=== PATIENT | male | born 1950 | race Caucasian/White ===

== ENCOUNTER 2016-10-03 23:36 | Emergency (ER) | payer MEDICARE, OTHER ==
[2016-10-04 00:05] VITALS: TEMP 97.9
--- NOTE | 2016-10-04 00:05 | ED.PDOC ---
History of Present Illness - General Chief Complaint: Neuro Symptoms/Deficits Stated Complaint: fall x3, altered mental status Time Seen by Provider: 10/03/16 23:53 Source: patient, RN notes reviewed, Vital Signs reviewed, family - Daughter Exam Limitations: no limitations, clinical condition - History of Present Illness Initial Comments: Patient is a 66 y/o male who is brought in by his daughter. He has had altered mental status today. She indicates that he was not acting normally yesterday according to his grandson. No one knows his last known normal. Patient has a history of pain medicine use, and often will take more than he is supposed to. He has been out of his pain medicine for the past 3 days. He fell 3 days ago and hit his head. Today he has fallen three times and has hit his head each time. He doesn't make sense when he talks and doesn't answer questions appropriately. He does follow commands appropriately. He cannot tell me if he feels any weakness. He has pain in his back. Timing/Duration: unsure Severity: moderate Improving Factors: nothing Worsening Factors: nothing Allergies/Adverse Reactions: Allergies NO KNOWN ALLERGY Allergy (Verified 10/04/16 00:05) Home Medications: Ambulatory Orders Amlodipine Besylate [Norvasc] 10 mg PO DAILY 01/04/15 Clonidine HCl 0.3 mg PO QID 01/04/15 HYDROcodone 5MG/APAP 325MG [[place] 5/325] 1 tab PO Q8HRS PRN 01/04/15 Metformin HCl 500 mg PO DAILYBK 01/04/15 Simvastatin 40 mg PO BEDTIME 01/04/15 Valsartan-Hydrochlorothiazide [Diovan Hct 320-25 mg] 1 tab PO DAILY 01/04/15 Zolpidem Tartrate [Ambien] 10 mg PO BEDTIME 01/04/15 tiZANidine [Zanaflex] 8 mg PO Q8HRS PRN 01/04/15 Review of Systems - Review of Systems Musculoskeletal: States: back pain Neurological: States: other - altered mental status Unable to Obtain Due To: clinical condition Past Medical History (General) - Patient Medical History Hx Congestive Heart Failure: No Hx Diabetes: Yes Physical Exam - Physical Exam General Appearance: Alert, Comfortable, No apparent distress, Obese Eye Exam: bilateral normal Ears, Nose, Throat: hearing grossly normal, normal ENT inspection Neck: non-tender, full range of motion Respiratory: lungs clear, normal breath sounds, no respiratory distress, no accessory muscle use Cardiovascular/Chest: regular rate, rhythm, no edema, no gallop, no murmur Gastrointestinal/Abdominal: normal bowel sounds, non tender, soft, no organomegaly Extremity: normal inspection 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 Skin Exam: normal color, warm/dry Progress - Progress Progress: 10/04/16 00:[address] machine is down until at least tomorrow. Since Patient requires CT, he will be transferred to [facility]. - Results/Orders Results/Orders: 10/03/16 23:56 Temperature 97.9 F Pulse Rate 100 H Pulse Rate [ 106 H left] Respiratory 20 Rate Blood Pressure 116/58 [left] O2 Sat by Pulse 95 Oximetry - EKG/XRAY/CT EKG: Sinus, Tachy - 101 bpm, no ST T wave changes, Changed from - 01/07/2015 - only in rate - 94 bpm Comments: NML axis, NML intervals--Sinus tachycardia Departure - Departure Clinical Impression: Frequent falls Altered mental status Qualifiers: Altered mental status type: disorientation Qualifier Code: (R41.0) Disorientation, unspecified Closed head injury Qualifiers: Encounter type: initial encounter Qualifier Code: (S09.90XA) Unspecified injury of head, initial encounter Time of Disposition: 00:13 Disposition: Transfer to Hospital Home Medications: Ambulatory Orders Amlodipine Besylate [Norvasc] 10 mg PO DAILY 01/04/15 Clonidine HCl 0.3 mg PO QID 01/04/15 HYDROcodone 5MG/APAP 325MG [[place] 5/325] 1 tab PO Q8HRS PRN 01/04/15 Metformin HCl 500 mg PO DAILYBK 01/04/15 Simvastatin 40 mg PO BEDTIME 01/04/15 Valsartan-Hydrochlorothiazide [Diovan Hct 320-25 mg] 1 tab PO DAILY 01/04/15 Zolpidem Tartrate [Ambien] 10 mg PO BEDTIME 01/04/15 tiZANidine [Zanaflex] 8 mg PO Q8HRS PRN 01/04/15 Transfer to Outside Facility - Transfer Information Accepting Provider:: Dr. Vishal Lee Accepting Facility: [facility] Reason for Transfer: specialized care not available
[2016-10-04 01:29] VITALS: BP 112/70; O2SAT 96
== END 2016-10-04 01:00 | disposition short-term general hospital (02) ==
LOC: ER 23:36
DX: S09.90XA Unspecified injury of head, initial encounter (principal); R41.0 Disorientation, unspecified; E11.9 Type 2 diabetes mellitus without complications; R00.0 Tachycardia, unspecified; Z79.899 Other long term (current) drug therapy; W19.XXXA Unspecified fall, initial encounter; Z91.81 History of falling; Y92.9 Unspecified place or not applicable

== ENCOUNTER → 2016-11-06 | Outpatient (CLI) | payer MEDICARE, OTHER | END | disposition home or self-care (01) | LOC: GMAB 11:15 | PROVIDERS: ATTEND Family Medicine | DX: M46.28 Osteomyelitis of vertebra, sacral and sacrococcygeal region (principal) ==

== ENCOUNTER → 2016-11-09 | Outpatient (CLI) | payer MEDICARE, OTHER ==
--- NOTE | 2016-11-09 13:51 | RAD ---
EXAM DESCRIPTION: Shoulder,Right 2 or More Views CLINICAL HISTORY: 66 years,Male,PAIN IN RIGHT SHOULDER COMPARISON: None FINDINGS: The right shoulder demonstrates no evidence of fractures or dislocations or acute abnormalities. The acromial clavicular joint mildly hypertrophic. The included lung kellogg are unremarkable. There is no significant lateral down sloping of the acromion with no significant narrowing of the supraspinatus outlet. Some calcification in the supraspinatus tendon region. IMPRESSION: Right shoulder demonstrates some calcified tendinopathy of the supra and/or infraspinatus tendons. Electronically signed by: Juarez Greenwood MD 11/09/2016 1:51 PM CDT
--- NOTE | 2016-11-09 13:53 | RAD ---
EXAM DESCRIPTION: Knee,Right Complete CLINICAL HISTORY: 66 years,Male,PAIN IN RIGHT KNEE COMPARISON: None FINDINGS: The right knee demonstrates no fractures, dislocations, or other acute bony abnormalities. The joint spaces moderate loss of patellofemoral compartment. The soft tissues are unremarkable. No joint effusion. Cloudlike calcification seen in the metadiaphysis region of the medullary canal of the distal femur in the area measuring about 3 cm x 2 cm IMPRESSION: Right knee demonstrates an enchondroma in the distal femur. And mild patellofemoral osteoarthritic changes. Electronically signed by: Juarez Greenwood MD 11/09/2016 1:53 PM CDT
--- NOTE | 2016-11-09 13:55 | RAD ---
EXAM DESCRIPTION: Pelvis CLINICAL HISTORY: 66 years, Male, PAIN IN RIGHT HIP COMPARISON: None. FINDINGS: Pelvis demonstrates no bony fractures or other acute bony abnormalities. Joint spaces are unremarkable for age. Only minimal loss in the axial direction is bilateral hips. Disc space in lower lumbar spine. And facet hypertrophy and a bone stimulator partially seen exam on the right at L5-S1 IMPRESSION: Minimal age-appropriate osteoarthritic changes seen in the hips. Sclerosis indicating probable facet arthropathy at L5-S1 which also has a disc spacer. Electronically signed by: Juarez Greenwood MD 11/09/2016 1:54 PM CDT
== END | disposition home or self-care (01) ==
LOC: RAD 08:54
PROVIDERS: ATTEND Orthopaedic Surgery
DX: M25.551 Pain in right hip (principal); M25.511 Pain in right shoulder

== ENCOUNTER → 2017-03-02 | Outpatient (CLI) | payer MEDICARE, OTHER | END | disposition home or self-care (01) | LOC: GMAB 10:28 | PROVIDERS: ATTEND Family Medicine | DX: Z12.5 Encounter for screening for malignant neoplasm of prostate (principal); I10 Essential (primary) hypertension | CPT/HCPCS: 84443; G0103 ==

== ENCOUNTER → 2017-03-03 | Outpatient (CLI) | payer MEDICARE, OTHER ==
--- NOTE | 2017-03-03 10:35 | RAD ---
EXAM DESCRIPTION: Shoulder,Right 2 or More Views CLINICAL HISTORY: SHOULDER PAIN COMPARISON: None Available. TECHNIQUE: Four views of the right shoulder. FINDINGS: Normal alignment of the bony structures is noted without fracture or dislocation. The visualized chest wall and upper lung field is clear. The AC joint is normally aligned. There is subtle radiopaque density lying just above the humeral head most consistent with calcific tendinopathy or peritendinitis. The glenohumeral articulation is unremarkable. IMPRESSION: 1. Focal subtle calcific density overlying the humeral head most consistent with calcific tendinopathy or peritendinitis or possibly an intra-articular loose body slightly less than 1 cm in diameter. 2. The shoulder is otherwise essentially normal in appearance without fracture or dislocation or severe degenerative changes. Electronically signed by: Davin Montenegro MD 03/03/2017 10:34 AM CDT
--- NOTE | 2017-03-03 10:40 | RAD ---
EXAM DESCRIPTION: Knee,Right Complete CLINICAL HISTORY: 67 years, Male, KNEE PAIN COMPARISON: November 09, 2016 TECHNIQUE: Four views of the right knee FINDINGS: Right knee demonstrates a focal area of mottled sclerosis in the distal femoral metaphysis consistent with a small area of previous bone infarction. A chondroid series neoplasm cannot be entirely excluded. There is no associated cortical involvement or destruction. Mild degenerative lipping at the patellar articular margins are present. Joint space medially and laterally is intact. Very slight thickening suggests minimal synovitis or a small suprapatellar effusion. IMPRESSION: 1. Stable mild degenerative changes of the right knee without fracture or deformity or large effusion. 2. Stable approximate 2 x 3 cm area of amorphous calcification distal femoral metaphysis, most consistent with either an area of previous marrow infarction or a chondroid series tumor with no evidence of an aggressive destructive changes. 3. If the patient remains symptomatic with right knee pain, MRI of the knee with attention to both the architecture of the knee joint as well as evaluation of the marrow abnormality in the distal femur is suggested. Electronically signed by: Davin Montenegro MD 03/03/2017 10:39 AM CDT
--- NOTE | 2017-03-03 10:42 | RAD ---
EXAM DESCRIPTION: Pelvis CLINICAL HISTORY: 67 years Male, RT HIP PAIN COMPARISON: November 09, 2016 FINDINGS: The bony pelvis is intact with evidence of previous fusion and disc cages at the L5-S1 level noted. Mild degenerative lipping at the acetabular rim in this patient with right hip pain is noted and unchanged from prior November study. Joint spaces preserved and no fracture or dislocation noted. IMPRESSION: No interval change or acute abnormality of the pelvis with minimal degenerative lipping of the right hip acetabular rim. Electronically signed by: Davin Montenegro MD 03/03/2017 10:40 AM CDT
== END | disposition home or self-care (01) ==
LOC: RAD 07:44
PROVIDERS: ATTEND Orthopaedic Surgery
DX: M25.561 Pain in right knee (principal); M25.551 Pain in right hip; M25.511 Pain in right shoulder

== ENCOUNTER → 2017-03-09 | Outpatient (CLI) | payer MEDICARE, OTHER ==
--- NOTE | 2017-03-09 09:19 | CT ---
Study: CT Arthrogram of the Right Shoulder. Indication: ROTATOR CUFF SYNDROME Technique: Axial CT of the right shoulder was performed after intra-articular injection of contrast. Coronal and sagittal reformats performed. Please see the accompanying report regarding the procedural portion of this exam. This exam was performed according to our departmental dose-optimization program, which includes automated exposure control, adjustment of the mA and/or kV according to patient size and/or use of iterative reconstruction technique. Comparison: None. FINDINGS: Mild to moderate AC joint osteoarthritis. Type I acromion without downsloping. At the anterior supraspinatus tendon insertion there is irregular high-grade articular fissuring and mild interstitial delamination medially into the critical zone. There is contrast-filled intrasubstance ganglion formation at this site measuring up to 16 mm transverse. This involved area of irregular tendon tearing extends over an AP length of approximately 13 mm and a transverse width of 20 mm. No full-thickness tear or tendon retraction. Minimal calcium hydroxyapatite deposition in the mid infraspinatus tendon insertion. The superior margin of the subscapularis tendon is attenuated and a component of focal full-thickness tearing suspected. Teres minor tendon intact. No atrophy or fatty infiltration of the rotator cuff musculature. Long head biceps tendon intact. No contrast-filled high grade labral tear. No advanced glenohumeral joint osteoarthritis. No acute fracture. IMPRESSION: Irregular articular and interstitial tearing of the anterior supraspinatus tendon insertion as above. Subtle full-thickness tearing of the superior leading-edge of the subscapularis tendons suspected. Mild to moderate AC joint osteoarthritis. Electronically signed by: Sincere Escobar MD 03/09/2017 9:18 AM CDT
--- NOTE | 2017-03-09 09:58 | RAD ---
EXAM DESCRIPTION: Arthrogram Shoulder Right CLINICAL HISTORY: ROTATOR CUFF SYNDROME COMPARISON: Post-arthrogram CT scan of the right shoulder same date. TECHNIQUE: The procedure was explained to the patient with risks and benefits. The patient gave verbal and written consent. Patient supine on the fluoroscopic table with right shoulder in external rotation. The anterior mid superior right glenohumeral joint was localized by fluoroscopy. The skin was marked, then prepped and draped in a sterile fashion. Local anesthetic given intradermally and intramuscularly. 5 cc of nonionic contrast was prepared in a syringe. A mixture of 10 cc nonionic contrast, 5 mL of 1% xylocaine, 1 cc sodium bicarbonate , 5 cc of sterile saline and 0.1% gadolinium was prepared in a second syringe. A 1.5-cm, 25-ga. needle was introduced into the anterior superior right glenohumeral joint capsule under fluoroscopic visualization. A test injection of two cc of the contrast only was performed under fluoroscopy. Additional nine cc of the contrast mixture was then injected under fluoroscopy. The patient tolerated the procedure well. Patient was transferred to the CT suite for multiplanar imaging. No immediate complications. Fluoroscopy time was 0.6 minutes. Dose: 38.6 mGy. Single frontal image of the right shoulder external rotation demonstrating intra-articular contrast and injection needle obtained. IMPRESSION: Successful, fluoroscopic guided arthrogram of the right shoulder prior to CT scan. Permanent images from this procedure are maintained in the patient's medical record. Electronically signed by: Giorgio Figueroa MD 03/09/2017 9:57 AM CDT
== END | disposition home or self-care (01) ==
LOC: RAD 16:48
PROVIDERS: ATTEND Orthopaedic Surgery
DX: M75.121 Complete rotator cuff tear or rupture of right shoulder, not specified as traumatic (principal); X58.XXXA Exposure to other specified factors, initial encounter

== ENCOUNTER → 2017-06-03 | Outpatient (CLI) | payer MEDICARE, OTHER | END | disposition home or self-care (01) | LOC: RESP 12:48 | PROVIDERS: ATTEND Orthopaedic Surgery | DX: Z01.818 Encounter for other preprocedural examination (principal) ==

== ENCOUNTER 2017-06-08 05:40 | Day surgery (SDC) | payer MEDICARE, OTHER ==
[2017-06-08] MEDS ORDERED: LACTATED RINGERS 1,000 ML ONE (05:55)
[2017-06-08] MEDS ORDERED: ceFAZolin SODIUM 1 GM VIAL ONE ×3 (05:55→07:52)
[2017-06-08] MEDS ORDERED: SODIUM CHL 0.9% 100ML MINI-BAG 100 ML IVPB ONE (05:55)
[2017-06-08] MEDS ORDERED: ROCURONIUM BROMIDE 10 MG/ML VIAL ONE (06:52)
[2017-06-08] MEDS ORDERED: MIDAZOLAM INJ 2 MG/2 ML VIAL ONE (06:52)
[2017-06-08] MEDS ORDERED: fentaNYL CITRATE INJ 50 MCG/ML AMP ONE (06:52)
[2017-06-08] MEDS: BUPIVACAINE 0.25% W/EPI 50 ML VIAL INJ ONE ×2 (07:15→07:59)
[2017-06-08] MEDS ORDERED: VANCOMYCIN HCL INJ 1,000 MG VIAL IVPB ONE (07:52)
[2017-06-08 09:54] VITALS: BP 133/68; TEMP 97.9; O2SAT 97
[2017-06-08] MEDS ORDERED: raNITIdine HCL INJ 25 MG/ML VIAL IV ONE (10:00)
[2017-06-08] MEDS ORDERED: PROPOFOL 200 MG/20 ML VIAL IV ONE (10:00)
[2017-06-08] MEDS ORDERED: LIDOCAINE 1% 10 ML VIAL INJ ONE (10:00)
[2017-06-08] MEDS ORDERED: ePHEDrine SULF 50 MG/ML IV ONE (10:00)
[2017-06-08] MEDS ORDERED: DEXAMETHASONE INJ 10 MG/ML VIAL IV ONE (10:00)
[2017-06-08] MEDS ORDERED: METOCLOPRAMIDE HCL INJ 10 MG/2 ML VIAL IV ONE (10:00)
[2017-06-08] MEDS ORDERED: ceFAZolin SODIUM 1 GM VIAL IVPB ONE (10:00)
--- NOTE | 2017-06-09 08:47 | OP ---
DATE OF PROCEDURE: 06/08/17 PREOPERATIVE DIAGNOSIS: 1. Right knee medial meniscus tear. 2. Right knee pain. POSTOPERATIVE DIAGNOSIS: 1. Complex tear of the medial meniscus. 2. Advanced chondromalacia of the medial compartment. PROCEDURE: 1. Partial medial meniscectomy. 2. Chondroplasty. SURGEON: Guille Liu MD. CONSTRUCTION ENGINEERING MANAGER: Giorgio Godwin CST, SA-Yaneth. ANESTHESIA: General. COMPLICATIONS: None. FINDINGS: 1. Complex tear involving the body of the medial meniscus. 2. Advanced chondromalacia with large full thickness defect on the medial femoral condyle. There is grade 3 to 4 chondromalacia of the medial tibial plateau. 3. Normal anterior cruciate ligament. 4. Normal posterior cruciate ligament. 5. Grade 2 to 3 chondromalacia of the lateral compartment. 6. Normal lateral gutter. 7. Normal suprapatellar pouch. 8. Advanced chondromalacia of the patellar articular surface. 9. Normal medial gutter. INDICATION: Mr. Martino has a long history of knee pain for which he has undergone multiple injections, anti-inflammatories and activity modification. Unfortunately, he has failed to get relief from this. Because of the ongoing pain, he has requested operative intervention. After discussing the risks, benefits and alternatives to that, the patient has given informed consent. PROCEDURE: The patient was brought to the Operating Room and placed in supine position. General anesthesia was induced and the patient's leg was sterilely prepped and draped. Following prepping and draping, standard anteromedial and anterolateral portals were established. Diagnostic arthroscopy was carried out with the above findings. Attention was then focused on the medial compartment. The aforementioned meniscus tear was debrided using a 3.5 mm full radius shaver. Following that, attention was focused on the chondral surface. Using a 3.5 mm full radius shaver, the chondral surfaces were debrided to a stable base. The knee was thoroughly irrigated and drained. The wounds were closed with Nylon suture. Sterile dressings were placed. The patient was awoken from anesthesia and taken to Recovery. POSTOPERATIVE INSTRUCTIONS: The patient will be partial weightbearing until followup with us in two days. #[id number] [facility]
== END 2017-06-08 09:40 | disposition home or self-care (01) ==
LOC: AMB 05:40
PROVIDERS: ATTEND Orthopaedic Surgery
DX: S83.231A Complex tear of medial meniscus, current injury, right knee, initial encounter (principal); M22.41 Chondromalacia patellae, right knee; I10 Essential (primary) hypertension; E11.9 Type 2 diabetes mellitus without complications; E66.01 Morbid (severe) obesity due to excess calories; Z68.41 Body mass index [BMI] 40.0-44.9, adult; G47.33 Obstructive sleep apnea (adult) (pediatric); J98.11 Atelectasis; Z87.891 Personal history of nicotine dependence; Z79.84 Long term (current) use of oral hypoglycemic drugs; Z79.899 Other long term (current) drug therapy
CPT/HCPCS: 01400; 29881; 36416; 82948; J0690; J1100; J2250; J2765; J2780; J3010; J3370; J3490; J7050; J7120

== ENCOUNTER 2017-06-08 23:26 | Emergency (ER) | payer MEDICARE, OTHER ==
--- NOTE | 2017-06-08 23:34 | ED.PDOC ---
History of Present Illness - General Chief Complaint: Diabetic Complaint Stated Complaint: elevated blood sugar Time Seen by Provider: 06/08/17 23:30 Source: patient Exam Limitations: no limitations - History of Present Illness Initial Comments: Carlos Alberto Martino 67 y/o male stated that his blood sugar went up after checking with FSBS>300 tonight stating that it runs 120-150.Stated had recent right knee syrgery yesterday -arthroscopy.Denies chest pains,SOB,blurry vision. Timing/Duration: 1-3 hours Severity: moderate Improving Factors: nothing Worsening Factors: nothing Associated Symptoms: denies symptoms, other - see hpi Allergies/Adverse Reactions: Allergies NO KNOWN ALLERGY Allergy (Verified 10/04/16 00:05) Home Medications: Ambulatory Orders Amlodipine Besylate [Norvasc] 10 mg PO DAILY 01/04/15 Clonidine HCl 0.3 mg PO QID 01/04/15 Metformin HCl 500 mg PO BID 01/04/15 Simvastatin 40 mg PO BEDTIME 01/04/15 Valsartan-Hydrochlorothiazide [Diovan Hct 320-25 mg] 1 tab PO DAILY 01/04/15 tiZANidine [Zanaflex] 8 mg PO TID PRN 01/04/15 Amitriptyline HCl 100 mg PO BEDTIME 06/03/17 Gabapentin 400 mg PO TID 06/03/17 Metoprolol Succinate [Toprol XL] 100 mg PO DAILY 06/03/17 Review of Systems - Review of Systems Constitutional: States: no symptoms reported EENTM: States: no symptoms reported Respiratory: States: no symptoms reported Cardiology: States: no symptoms reported Gastrointestinal/Abdominal: States: no symptoms reported Genitourinary: States: no symptoms reported Musculoskeletal: States: see HPI, other - recent right knee surgery-OA All other Systems: Reviewed and Negative, No Change from Baseline Past Medical History (General) - Patient Medical History Hx Congestive Heart Failure: No Hx Hypertension: Yes Hx Diabetes: Yes Hx MRSA: No Surgical History: cholecystectomy, other - knee,lower back - Vaccination History Hx Tetanus, Diphtheria Vaccination: No Hx Influenza Vaccination: No Hx Pneumococcal Vaccination: No - Social History Hx Alcohol Use: No Family Medical History - Family History Father Family History: Unknown Hx Family Hypertension: Yes - several family members Hx Cardiac Disease: Yes - several family members Physical Exam - Physical Exam General Appearance: Alert, Comfortable, No apparent distress Eye Exam: bilateral normal Ears, Nose, Throat: hearing grossly normal, normal ENT inspection Neck: non-tender, full range of motion, supple Respiratory: lungs clear, normal breath sounds Cardiovascular/Chest: normal peripheral pulses, regular rate, rhythm, no murmur Peripheral Pulses: radial,right: 2+, radial,left: 2+ Gastrointestinal/Abdominal: normal bowel sounds, non tender, soft, no organomegaly Back Exam: no CVA tenderness, no vertebral tenderness Extremity: other - covered with isaac wrap recent surgery right knee Neurologic: alert, oriented x 3 Skin Exam: normal color, warm/dry Progress - Progress Progress: 06/09/17 00:16 Vital Signs - 8 hr 06/08/17 23:34 Temperature 96.6 F L Pulse Rate [ 86 Left Radial] Respiratory 20 Rate Blood Pressure 147/78 [Right Arm] O2 Sat by Pulse 96 Oximetry - Results/Orders Results/Orders: Laboratory Tests 06/08/17 06/08/17 06/08/17 00:05 00:05 00:10 WBC 14.5 H RBC 5.02 Hgb 14.7 Hct 42.8 MCV 85.3 MCH 29.3 MCHC 34.3 RDW 13.7 Plt Count 245 MPV 8.0 Absolute Neuts (auto) 12.80 H Absolute Lymphs (auto) 1.10 Absolute Monos (auto) 0.60 Absolute Eos (auto) 0.00 Absolute Basos (auto) 0.00 Neutrophils % 88.1 H Lymphocytes % 7.6 L Monocytes % 3.9 Eosinophils % 0.1 L Basophils % 0.3 Sodium 136 Potassium 3.9 Chloride 102 Carbon Dioxide 23 Anion Gap 14.9 BUN 22 H Creatinine 1.12 BUN/Creatinine Ratio 19.6 POC Glucose 198 H Random Glucose 231 H Serum Osmolality 282.7 Calcium 9.1 Total Bilirubin 0.5 AST 31 ALT 49 Alkaline Phosphatase 88 Serum Total Protein 7.9 Albumin 4.4 Globulin 3.5 Albumin/Globulin Ratio 1.3 Departure - Departure Clinical Impression: Hyperglycemia Diabetes Qualifiers: Diabetes mellitus type: due to underlying condition Diabetes mellitus complication status: without complication 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 Copy, Patient Portal Self Enrollment Instructions: DI for Diabetes Type 2, Lifestyle Changes as Effective as Drugs in Preventing Progression to Diabet, Diet Plate May Help People With Diabetes Lose Weight, Complications of Type 2 Diabetes Referrals: James Tam MD [Primary Care Provider] - 1-2 Weeks Home Medications: Ambulatory Orders Amlodipine Besylate [Norvasc] 10 mg PO DAILY 01/04/15 Clonidine HCl 0.3 mg PO QID 01/04/15 Metformin HCl 500 mg PO BID 01/04/15 Simvastatin 40 mg PO BEDTIME 01/04/15 Valsartan-Hydrochlorothiazide [Diovan Hct 320-25 mg] 1 tab PO DAILY 01/04/15 tiZANidine [Zanaflex] 8 mg PO TID PRN 01/04/15 Amitriptyline HCl 100 mg PO BEDTIME 06/03/17 Gabapentin 400 mg PO TID 06/03/17 Metoprolol Succinate [Toprol XL] 100 mg PO DAILY 06/03/17 Additional Instructions: Continue with current medications ;Call primary Md in am for follow up
[2017-06-08 23:40] VITALS: O2SAT 96
[2017-06-09 01:15] VITALS: BP 142/80; TEMP 97.2
== END 2017-06-09 01:00 | disposition home or self-care (01) ==
LOC: ER 23:26
DX: E08.65 Diabetes mellitus due to underlying condition with hyperglycemia (principal); I10 Essential (primary) hypertension; Z79.899 Other long term (current) drug therapy; Z79.84 Long term (current) use of oral hypoglycemic drugs

== ENCOUNTER → 2018-03-14 | Outpatient (CLI) | payer MEDICARE, OTHER | LOC: RESP 09:09 | PROVIDERS: ATTEND Orthopaedic Surgery | DX: Z01.818 Encounter for other preprocedural examination (principal) ==

== ENCOUNTER 2018-03-30 05:57 | Day surgery (SDC) | payer MEDICARE, OTHER ==
--- NOTE | 2018-03-28 09:52 | HP ---
CHIEF COMPLAINT: Right shoulder pain. HISTORY OF PRESENT ILLNESS: Carlos Alberto is a 68-year-old male with a history of pain in the right shoulder. His pain has been present for quite some time. He does not have any history of trauma related to it. He denies any radiation of pain and denies any neurologic symptoms. It has been refractory to conservative measures. PAST SURGICAL HISTORY: 1. Lumbar surgery. MEDICATIONS: 1. Diovan. 2. Clonidine. 3. [place]. 4. Simvastatin. ALLERGIES: NO KNOWN DRUG ALLERGIES. CODE STATUS: Full code. IMMUNIZATIONS: Up to date. FAMILY HISTORY: None pertinent to today's complaint. SOCIAL HISTORY: The patient does not drink, smoke or use any illicit drugs. REVIEW OF SYSTEMS: Negative except as indicated in the History of Present Illness. PHYSICAL EXAMINATION: VITAL SIGNS: Blood pressure 178/103. Pulse 93. Height 5'10". Weight 298 pounds. MENTAL STATUS: The patient is awake, alert, and is able to give a good history and participate in the physical. The patient is oriented to person, place and time. SKIN: Normal tone and turgor. MUSCULOSKELETAL: He is very tender in the subacromial space, but also has tenderness to palpation over the acromioclavicular joint. He has abduction to about 100 degrees and has severe pain with abduction and resisted extension. He has pain with internal and external rotation during forward flexion. Strength is 5/5 in voice network engineer. IMAGING: MRI does show a tear of the rotator cuff. ASSESSMENT: 1. Rotator cuff tear. PLAN: The plan at this point is for rotator cuff repair. We have discussed the risks, benefits, and alternatives to that and the patient has given informed consent. #[id number] [facility]
[2018-03-30] MEDS ORDERED: ceFAZolin SODIUM 1 GM VIAL ONE ×2 (06:09→06:18)
[2018-03-30] MEDS ORDERED: LACTATED RINGERS 1,000 ML ONE (06:09)
[2018-03-30] MEDS ORDERED: SODIUM CHL 0.9% 100ML MINI-BAG 100 ML IVPB ONE (06:09)
[2018-03-30] MEDS ORDERED: VANCOMYCIN HCL INJ 1,000 MG VIAL IVPB ONE (06:18)
[2018-03-30] MEDS ORDERED: BUPIVACAINE 0.25% W/EPI 50 ML VIAL INJ ONE (06:19)
[2018-03-30] MEDS ORDERED: LIDOCAINE 1% W/ EPINEPHRINE 20 ML VIAL INJ ONE (06:20)
[2018-03-30] MEDS ORDERED: fentaNYL CITRATE INJ 50 MCG/ML AMP ONE (06:25)
[2018-03-30] MEDS ORDERED: ROCURONIUM BROMIDE 10 MG/ML VIAL ONE ×2 (06:25→08:35)
[2018-03-30] MEDS ORDERED: BUPIVACAINE 0.5% 30 ML VIAL INJ ONE (06:30)
[2018-03-30] MEDS ORDERED: MIDAZOLAM INJ 2 MG/2 ML VIAL ONE ×2 (06:30→07:21)
[2018-03-30] MEDS ORDERED: BUPIVACAINE LIPOSOME 13.3 MG/ML VIAL INJ ONE ×2 (06:30→08:06)
[2018-03-30] MEDS ORDERED: SUCCINYLCHOLINE CHLORIDE 200 MG/10 ML VIAL ONE (07:37)
[2018-03-30] MEDS ORDERED: CLINDAMYCIN IV 900MG 50 ML IVPB ONE (08:07)
[2018-03-30] MEDS ORDERED: ELECTROLYTE-A 1,000 ML IVS ONE (08:37)
[2018-03-30] MEDS ORDERED: SUGAMMADEX SODIUM 200 MG/2 ML VIAL IV ONE (08:56)
[2018-03-30] MEDS ORDERED: METOCLOPRAMIDE HCL INJ 10 MG/2 ML VIAL IV ONE (10:00)
[2018-03-30] MEDS ORDERED: DEXAMETHASONE INJ 10 MG/ML VIAL IV ONE (10:00)
[2018-03-30] MEDS ORDERED: PHENYLEPHRINE INJ 1ML 10 MG/ML VIAL IV ONE (10:00)
[2018-03-30] MEDS ORDERED: LIDOCAINE 1% 10 ML VIAL INJ ONE (10:00)
[2018-03-30] MEDS ORDERED: raNITIdine HCL INJ 25 MG/ML VIAL IV ONE (10:00)
[2018-03-30] MEDS ORDERED: ePHEDrine SULF 50 MG/ML IV ONE (10:00)
[2018-03-30] MEDS ORDERED: PROPOFOL 200 MG/20 ML VIAL IV ONE (10:00)
[2018-03-30 10:17] VITALS: BP 152/82; TEMP 98; O2SAT 94
[2018-03-30] MEDS ORDERED: ACETAMINOPHEN IV 1000MG 100 ML ONE (10:23)
[2018-03-30] MEDS ORDERED: IBUPROFEN 200 MG TAB ONE (10:23)
[2018-03-30] MEDS ORDERED: ACETAMINOPHEN IV 1000 MG/100 ML BOTTLE IVPB ONE (10:31)
[2018-03-30] MEDS ORDERED: AZITHROMYCIN IV 500 MG VIAL IVPB ONE (14:55)
[2018-03-30] MEDS ORDERED: SODIUM CHLORIDE 0.9% 250ML 250 ML ONE (14:56)
--- NOTE | 2018-03-31 09:01 | OP ---
DATE OF PROCEDURE: 03/30/18 PREOPERATIVE DIAGNOSIS: 1. Rotator cuff tear. POSTOPERATIVE DIAGNOSIS: 1. Rotator cuff tear. PROCEDURE: 1. Rotator cuff repair. SURGEON: Guille Liu MD. METAL DOOR ASSEMBLER: Giorgio Godwin CST, SA-C. ANESTHESIA: General anesthesia. COMPLICATIONS: None. FINDINGS: Rotator cuff tear measuring about 12 mm involving the anterior portion of the supraspinatus. INDICATION: Mr. Martino has a history of shoulder pain that has been refractory to conservative measures. These measures have included injections, therapy and oral medications. Unfortunately, he has been unable to get relief. Because of his failure of relief, he has requested operative intervention. After discussing the risks, benefits and alternatives to operative intervention , the patient has given informed consent for rotator cuff repair. PROCEDURE: The patient was brought to the Operating Room and placed in the supine position. General anesthesia was induced and the patient was transitioned into the beach chair position. The arm and shoulder were sterilely prepped and draped. An incision was made at the lateral border of the acromion. Full thickness skin flaps were developed and the deltoid was identified. A split between the anterior and middle heads of the deltoid was made. A completed bursectomy was performed. The rotator cuff was identified. A minimal acromioplasty was performed to improve visualization. Upon inspection of the rotator cuff, it was noted there was a tear measuring approximately 12 mm. Otherwise, there was no retraction and the tissue appeared to be of decent quality. The anatomic footprint was debrided and double-loaded suture anchor was used to reapproximate the tendon. Following reapproximation of the tendon, the arm was taken through a range of motion. The construct was found to be stable and there was no apparent undue stress on the repair. Following that, the wound was very thoroughly irrigated and the deltoid was reapproximated. The skin was closed with a combination of running and interrupted subcuticular stitches. Sterile dressings were placed. The patient was placed in a sling. The patient was awoken from anesthesia and taken to Recovery. POSTOPERATIVE PLAN: He will be limited with regards to range of motion and will stay in the sling until followup with us. We will begin early gentle passive range of motion. #[id number] [facility]
== END 2018-03-30 11:30 | disposition home or self-care (01) ==
LOC: AMB 05:57
PROVIDERS: ATTEND Orthopaedic Surgery
DX: M75.101 Unspecified rotator cuff tear or rupture of right shoulder, not specified as traumatic (principal); I10 Essential (primary) hypertension; E11.9 Type 2 diabetes mellitus without complications; E66.9 Obesity, unspecified; G47.30 Sleep apnea, unspecified; Z68.41 Body mass index [BMI] 40.0-44.9, adult; Z87.891 Personal history of nicotine dependence; Z79.899 Other long term (current) drug therapy
CPT/HCPCS: 01630; 23420; 36416; 82948; J0330; J0456; J0690; J1100; J2250; J2765; J2780; J3010; J3370; J3490; J7050; J7120

== ENCOUNTER → 2018-07-14 | Outpatient (CLI) | payer MEDICARE, OTHER | LOC: GMAE 11:23 | PROVIDERS: ATTEND Family Medicine | DX: I10 Essential (primary) hypertension (principal) ==

== ENCOUNTER 2018-08-14 11:49 | Inpatient (IN) | payer MEDICARE, OTHER ==
[2018-08-14] MEDS ORDERED: IPRATROPIUM/ALBUTEROL 3 ML VIAL NEB ONE (12:01)
--- NOTE | 2018-08-14 12:53 | RAD ---
EXAM DESCRIPTION: Chest,1 View CLINICAL HISTORY: hypoxi, ams COMPARISON: January 03, 2015 FINDINGS: Decreased lung volumes could be secondary to underinflation. Enlarged cardiac silhouette could be secondary to cardiomegaly. EKG leads project over the chest. There is atherosclerosis.. There is no focal parenchymal or pleural disease. There is no acute osseous process visualized. IMPRESSION: No evidence of acute cardiopulmonary disease. Electronically signed by: Kasi Velazquez MD 08/14/2018 12:51 PM CODING CONSULTANT
--- NOTE | 2018-08-14 13:17 | CT ---
EXAM DESCRIPTION: Head CLINICAL HISTORY: hypoxia, ams COMPARISON: None Available. TECHNIQUE: Contiguous axial images of the brain were obtained without the administration of intravenous contrast. This exam was performed according to our departmental dose-optimization program, which includes automated exposure control, adjustment of the mA and/or kV according to patient size and/or use of iterative reconstruction technique. FINDINGS: There is no acute intracranial hemorrhage or mass effect. Ventricular system is within normal limits. There is adequate andrews-white matter differentiation. There is no skull fracture. Mucoperiosteal thickening of the posterior left ethmoid sinuses compatible with chronic sinusitis changes. Fatty lesion within the posterior scalp compatible with a lipoma, axial image 37. There is atherosclerosis. IMPRESSION: No acute intracranial abnormalities. Electronically signed by: Kasi Velazquez MD 08/14/2018 1:15 PM [facility]
[2018-08-14] MEDS ORDERED: ACETYLCYSTEIN 20 % 6,000 MG/30 ML VIAL PO ONE (13:46)
--- NOTE | 2018-08-14 15:07 | CT ---
EXAM: CT CHEST ANGIOGRAPHY WITH IV CONTRAST HISTORY: hypoxia, ddimer COMPARISON: None Available TECHNIQUE: Contiguous axial images of the chest were obtained from the thoracic inlet to the level of the upper abdomen after the administration of intravenous contrast followed by reconstruction images. Volume rendering images were performed. This exam was performed according to our departmental dose-optimization program, which includes automated exposure control, adjustment of the mA and/or kV according to patient size and/or use of iterative reconstruction technique. FINDINGS: The aorta is of normal contour and tapering. There is atherosclerosis. Lung bases were not completely included in the examination. Linear opacities within the lower lungs may represent scar versus subsegmental atelectasis. There is a noncalcified pulmonary nodule within the posterior right upper lung measuring approximately 1.2 x 0.8 cm. Subcentimeter lymph nodes are noted within the mediastinum. There is a small amount of fluid within the superior pericardial recess. Decreased attenuation of the liver compatible with fatty infiltration. Filling defects within the mid esophagus could represent retained food material. There is no discrete filling defect within the pulmonary arterial system to suggest pulmonary emboli. There is no pleural fluid collection. There is no parenchymal consolidation or pneumothorax. There is a 1.3 cm right thyroid nodule. As per RP best practice protocol, no further follow-up recommended. IMPRESSION: Noncalcified a 1.2 cm pulmonary nodule within the right lung worrisome for malignancy. Recommend comparison with priors if available. Follow-up PET scan could be helpful for further evaluation. No CT evidence of acute pulmonary emboli. Filling defects within the mid esophagus could represent retained food material. Electronically signed by: Kasi Velazquez MD 08/14/2018 3:05 PM [facility]
[2018-08-14] MEDS ORDERED: cefTRIAXone SODIUM 1 GM in SODIUM CHL 0.9% 50ML MIN-BAG+ 50 ML IVPB ONE (16:14)
[2018-08-14] MEDS ORDERED: methylPREDNISolone SODIUM SUC 125 MG/2 ML VIAL IV ONE (16:14)
--- NOTE | 2018-08-14 16:14 | ED.PDOC ---
History of Present Illness - General Chief Complaint: Neuro Symptoms/Deficits Time Seen by Provider: 08/14/18 11:52 Source: patient Exam Limitations: no limitations - History of Present Illness Initial Comments: the patient is a 68-year-old male presenting to the emergency room secondary to non-responsiveness. Apparently the patient was unresponsive in his chair with his family member went to talk to him. The last time he was seen normal was the night before. The patient does have a history of obstructive sleep apnea but does not use his sleep apnea machine. Additionally he has been taking some OxyContin that he received from a physician a few weeks ago even though he is not supposed to be on that kind of medication. Upon arrival by EMS oxygen saturations were in the low 70s. The patient was initially unresponsive however once oxygen was placed the patient came to and was alert and oriented 4. Upon arrival here to the emergency room the patient is drowsy but is arousable to voice. Fairly quickly upon going off of the oxygen with EMS and before we could put him on our oxygen the patient's saturations dropped down to 73% on room air. he patient has remained arousable to voice and oriented. He is able to tell us what medications he takes what medications he is supposed to be on. He is not complaining of any chest pain or real shortness of breath. Again he is still drowsy. Respiratory rate is on the lower end of normal and somewhat shallow so CPAP was initially started and then changed over to BiPAP once the ABG returned still showing some significant CO2 retention. Timing/Duration: unsure Severity: severe Improving Factors: medication Worsening Factors: nothing Associated Symptoms: malaise Allergies/Adverse Reactions: Allergies NO KNOWN ALLERGY Allergy (Verified 03/28/18 09:19) Home Medications: Ambulatory Orders Amlodipine Besylate [Norvasc] 10 mg PO DAILY 01/04/15 Clonidine HCl 0.3 mg PO QID 01/04/15 Metformin HCl 500 mg PO BID 01/04/15 Simvastatin 40 mg PO BEDTIME 01/04/15 Valsartan-Hydrochlorothiazide [Diovan Hct 320-25 mg] 1 tab PO DAILY 01/04/15 tiZANidine [Zanaflex] 8 mg PO BID PRN 01/04/15 Metoprolol Succinate [Toprol XL] 100 mg PO DAILY 06/03/17 Potassium Chloride [Potassium Chloride ER] 10 meq PO DAILY 03/28/18 Rifampin [Rifadin] 300 mg PO BID 03/28/18 Sulfa/Trimeth 800/160 (Ds) Tab [Bactrim DS] 1 tablet PO BID 03/28/18 Review of Systems - Review of Systems Constitutional: States: malaise, weakness - eneralized EENTM: States: no symptoms reported Respiratory: States: no symptoms reported Cardiology: States: no symptoms reported Gastrointestinal/Abdominal: States: no symptoms reported Genitourinary: States: no symptoms reported Musculoskeletal: States: no symptoms reported Skin: States: no symptoms reported Neurological: States: see HPI All other Systems: No Change from Baseline Past Medical History (General) - Patient Medical History Hx Seizures: No Hx Stroke: No Hx Dementia: No Hx Asthma: No Hx of COPD: Yes Hx Cardiac Disorders: Yes Hx Congestive Heart Failure: No Hx Pacemaker: No Hx Hypertension: Yes Hx Thyroid Disease: No Hx Diabetes: Yes Hx Gastroesophageal Reflux: No Hx Renal Disease: No Hx Cancer: No Hx of HIV: No Hx Hepatitis C: No Hx MRSA: No MRSA Source:: Wound - Vaccination History Hx Tetanus, Diphtheria Vaccination: No Hx Influenza Vaccination: No Hx Pneumococcal Vaccination: No Immunizations Up to Date: No - Social History Hx Tobacco Use: No Hx Chewing Tobacco Use: No Hx Alcohol Use: No Hx Substance Use: No Hx Substance Use Treatment: No Hx Depression: No Feels Threatened In Home Enviroment: No Feels Threatened In a Relationship: No Hx Physical Abuse: No Hx Emotional Abuse: No Hx Suspected Abuse: No - Activities of Daily Living Hospice Agency (if applicable):: None - Female History Patient is a Female of Child Bearing Age (10 -59 yrs old): No Patient : No Family Medical History - Family History Father Family History: Unknown Hx Family Hypertension: Yes - several family members Hx Cardiac Disease: Yes - several family members Physical Exam - Physical Exam General Appearance: Lethargic - but arousable to voice., Obese, Unkempt Eye Exam: bilateral normal Ears, Nose, Throat: hearing grossly normal, normal pharynx - small posterior oropharynx Neck: non-tender, full range of motion, supple Respiratory: lungs clear, normal breath sounds, no respiratory distress, no accessory muscle use, other - fairly shallow breathing Cardiovascular/Chest: normal peripheral pulses, regular rate, rhythm Peripheral Pulses: radial,right: 2+, radial,left: 2+ Gastrointestinal/Abdominal: non tender, soft - morbidly obese Rectal Exam: deferred Back Exam: no CVA tenderness, no vertebral tenderness Extremity: non-tender, normal inspection, no pedal edema, normal capillary refill Neurologic: director heart II-XII nml as tested, oriented x 3, other - rouse multiple loose Skin Exam: normal color Comments: Vital Signs - 24 hr 08/14/18 08/14/18 08/14/18 11:50 12:10 12:50 Temperature 97.3 F L Pulse Rate 75 Pulse Rate [ 74 72 Apical] Respiratory 12 18 22 Rate Blood Pressure 157/83 135/85 [Left Arm] O2 Sat by Pulse 73 L 95 95 Oximetry 08/14/18 08/14/18 08/14/18 13:50 14:10 14:50 Temperature Pulse Rate Pulse Rate [ 71 Apical] Respiratory 22 16 22 Rate Blood Pressure 134/95 145/79 [Left Arm] O2 Sat by Pulse 99 96 Oximetry Progress - Progress Progress: 08/14/18 16:18 the patient is a 68-year-old male presenting to the emergency room secondary to near respiratory failure. This is likely multifactorial given the patient's noncompliance with his treatment for his sleep apnea. This in combination with his opiate and muscle relaxer use likely cause severe hypoventilation and hypoxic encephalopathy. An initial oxygen saturation without oxygen is 73%. All sedatives are being avoided. He is receiving a dose of antibiotics and a dose of steroids in case there is a mild COPD or infectious component. He has tested negative for the flu. Continue BiPAP for now as he has significant CO2 retention. he is arousable to voice at this time. He is ventilating better with the BiPAP. Critical care time spent for hypoventilation and hypoxic encephalopathy is 40 minutes. This includes discussions with family in plan of care. Additionally the patient does have a 1.2 cm pulmonary nodule that will need to be followed up in the near future with pulmonology or oncology. This is not likely contributing to his symptoms at this time.again note that the ABG was obtained one hour after the patient was started on CPAP. 08/14/18 16:21 - Results/Orders Results/Orders: Vital Signs - 24 hr 08/14/18 08/14/18 08/14/18 11:50 12:10 12:50 Temperature 97.3 F L Pulse Rate 75 Pulse Rate [ 74 72 Apical] Respiratory 12 18 22 Rate Blood Pressure 157/83 135/85 [Left Arm] O2 Sat by Pulse 73 L 95 95 Oximetry 08/14/18 08/14/18 08/14/18 13:50 14:10 14:50 Temperature Pulse Rate Pulse Rate [ 71 Apical] Respiratory 22 16 22 Rate Blood Pressure 134/95 145/79 [Left Arm] O2 Sat by Pulse 99 96 Oximetry Laboratory Tests 08/14/18 08/14/18 08/14/18 11:53 11:53 13:10 WBC 12.0 H RBC 5.24 Hgb 14.9 Hct 45.7 MCV 87.2 MCH 28.5 MCHC 32.6 L RDW 14.5 Plt Count 238 MPV 7.8 Absolute Neuts (auto) 10.00 H Absolute Lymphs (auto) 0.90 L Absolute Monos (auto) 0.80 Absolute Eos (auto) 0.20 Absolute Basos (auto) 0.10 Neutrophils % 83.4 H Lymphocytes % 7.4 L Monocytes % 7.0 Eosinophils % 1.7 Basophils % 0.5 PT 10.5 INR 1.05 PTT (SP) 27.7 D-Dimer, Quantitative 0.54 H* pCO2 pO2 HCO3 ABG pH ABG O2 Saturation ABG Base Excess ABG Deoxyhemoglobin Oxyhemoglobin % Carboxyhemoglobin % Methemoglobin % Sat Calc Total Hemoglobin Sodium 136 Potassium 4.2 Chloride 96 L Carbon Dioxide 29 Anion Gap 15.2 BUN 14 Creatinine 0.93 BUN/Creatinine Ratio 15.1 Random Glucose 160 H Serum Osmolality 275.8 Lactic Acid Calcium 8.9 Magnesium 1.9 Total Bilirubin 0.8 AST 28 ALT 52 Alkaline Phosphatase 108 Creatine Kinase 147 CK-MB (CK-2) 1.6 CK-MB (CK-2) % Not Reportable Troponin I < 0.02 B-Natriuretic Peptide < 5.0 Serum Total Protein 7.4 Albumin 4.2 Globulin 3.2 Albumin/Globulin Ratio 1.3 Urine Color Urine Appearance Urine pH Ur Specific Holden Urine Protein Urine Glucose (UA) Urine Ketones Urine Blood Urine Nitrite Urine Bilirubin Urine Urobilinogen Ur Leukocyte Esterase Urine RBC Urine WBC Ur Epithelial Cells Urine Bacteria Urine Opiates Screen Urine Barbiturates Ur Phencyclidine Scrn U Amphetamin/Meth Scrn U Benzodiazepines Scrn U Cocaine Metab Screen U Cannabinoids Screen 08/14/18 08/14/18 08/14/18 13:10 13:10 13:45 WBC RBC Hgb Hct MCV MCH MCHC RDW Plt Count MPV Absolute Neuts (auto) Absolute Lymphs (auto) Absolute Monos (auto) Absolute Eos (auto) Absolute Basos (auto) Neutrophils % Lymphocytes % Monocytes % Eosinophils % Basophils % PT INR PTT (SP) D-Dimer, Quantitative pCO2 59 H pO2 64 L HCO3 32.8 ABG pH 7.360 ABG O2 Saturation 93.6 L ABG Base Excess 6.0 ABG Deoxyhemoglobin 6.2 H Oxyhemoglobin % 91.0 L Carboxyhemoglobin % 1.6 H Methemoglobin % Sat 1.1 Calc Total Hemoglobin 13.5 Sodium Potassium Chloride Carbon Dioxide Anion Gap BUN Creatinine BUN/Creatinine Ratio Random Glucose Serum Osmolality Lactic Acid 1.1 Calcium Magnesium Total Bilirubin AST ALT Alkaline Phosphatase Creatine Kinase CK-MB (CK-2) CK-MB (CK-2) % Troponin I B-Natriuretic Peptide Serum Total Protein Albumin Globulin Albumin/Globulin Ratio Urine Color Yellow Urine Appearance Clear Urine pH 7.0 Ur Specific Holden 1.020 Urine Protein Negative Urine Glucose (UA) Negative Urine Ketones Negative Urine Blood Negative Urine Nitrite Negative Urine Bilirubin Negative Urine Urobilinogen 1.0 Ur Leukocyte Esterase Negative Urine RBC 0-1 Urine WBC 0-1 Ur Epithelial Cells 0-1 Urine Bacteria Rare Urine Opiates Screen Urine Barbiturates Ur Phencyclidine Scrn U Amphetamin/Meth Scrn U Benzodiazepines Scrn U Cocaine Metab Screen U Cannabinoids Screen 08/14/18 14:35 WBC RBC Hgb Hct MCV MCH MCHC RDW Plt Count MPV Absolute Neuts (auto) Absolute Lymphs (auto) Absolute Monos (auto) Absolute Eos (auto) Absolute Basos (auto) Neutrophils % Lymphocytes % Monocytes % Eosinophils % Basophils % PT INR PTT (SP) D-Dimer, Quantitative pCO2 pO2 HCO3 ABG pH ABG O2 Saturation ABG Base Excess ABG Deoxyhemoglobin Oxyhemoglobin % Carboxyhemoglobin % Methemoglobin % Sat Calc Total Hemoglobin Sodium Potassium Chloride Carbon Dioxide Anion Gap BUN Creatinine BUN/Creatinine Ratio Random Glucose Serum Osmolality Lactic Acid Calcium Magnesium Total Bilirubin AST ALT Alkaline Phosphatase Creatine Kinase CK-MB (CK-2) CK-MB (CK-2) % Troponin I B-Natriuretic Peptide Serum Total Protein Albumin Globulin Albumin/Globulin Ratio Urine Color Urine Appearance Urine pH Ur Specific Holden Urine Protein Urine Glucose (UA) Urine Ketones Urine Blood Urine Nitrite Urine Bilirubin Urine Urobilinogen Ur Leukocyte Esterase Urine RBC Urine WBC Ur Epithelial Cells Urine Bacteria Urine Opiates Screen Negative Urine Barbiturates Negative Ur Phencyclidine Scrn Negative U Amphetamin/Meth Scrn Negative U Benzodiazepines Scrn Negative U Cocaine Metab Screen Negative U Cannabinoids Screen Negative chest x-ray shows fairly small lung kellogg and possible mild cardiomegaly but no obvious fluid overload or significant infiltrate. CT scan of the chest with angiogram showed no evidence of any pulmonary emboli. No obvious large vessel issues. No significant obvious fluid overload or large pneumonia. He does have a 1.2 cm pulmonary nodule that is suspicious looking and will have to be followed up. EKG shows normal sinus rhythm at 88 bpm. Normal axis. Q waves in lead [address] segment or T-wave changes concerning for acute ischemia. Normal R- wave progression. Mild left atrial dilation. - EKG/XRAY/CT CT Ordered: No CT Interpretation Call Back: No Departure - Departure Clinical Impression: Hypoventilation syndrome, Hypoxic encephalopathy, Pulmonary nodule, right Respiratory failure Qualifiers: Chronicity: acute Respiratory failure complication: hypoxia and hypercapnia Qualified Code(s): J96.01 - Acute respiratory failure with hypoxia; J96.02 - Acute respiratory failure with hypercapnia Adverse effects of medication Qualifiers: Encounter type: initial encounter Qualified Code(s): T50.905A - Adverse effect of unspecified drugs, medicaments and biological substances, initial encounter Disposition: Admit Patient Condition: Serious Referrals: JONY LOWERY MD [Primary Care Provider] - 1-2 Weeks Home Medications: Ambulatory Orders Amlodipine Besylate [Norvasc] 10 mg PO DAILY 01/04/15 Clonidine HCl 0.3 mg PO QID 01/04/15 Metformin HCl 500 mg PO BID 01/04/15 Simvastatin 40 mg PO BEDTIME 01/04/15 Valsartan-Hydrochlorothiazide [Diovan Hct 320-25 mg] 1 tab PO DAILY 01/04/15 tiZANidine [Zanaflex] 8 mg PO BID PRN 01/04/15 Metoprolol Succinate [Toprol XL] 100 mg PO DAILY 06/03/17 Potassium Chloride [Potassium Chloride ER] 10 meq PO DAILY 03/28/18 Rifampin [Rifadin] 300 mg PO BID 03/28/18 Sulfa/Trimeth 800/160 (Ds) Tab [Bactrim DS] 1 tablet PO BID 03/28/18 Decision To Admit - Decistion To Admit Decision to Admit Reason: Medical Nature Decision to Admit Date: 08/14/18 Decision to Admit Time: 16:23
[2018-08-14] MEDS ORDERED: cefTRIAXone SODIUM 1 GM VIAL ONE (16:21)
[2018-08-14] MEDS ORDERED: SODIUM CHL 0.9% 50ML MIN-BAG+ 50 ML IVPB ONE ×2 (16:21→22:19)
--- NOTE | 2018-08-14 16:48 | HP ---
SUPERVISING PHYSICIAN: Leandro Valentin MD CHIEF COMPLAINT: Confusion, recent falls. HISTORY OF PRESENT ILLNESS: Mr. Martino is a 68-year-old male patient who presented to the Emergency Room via EMS due to being unresponsive at home. Per EMS report, the patient was found by a family member at home and at that point, he was not talking to anybody. They note the last time he was seen normal was the night before. It is noted he does have a history of chronic obstructive pulmonary disease and obstructive sleep apnea, but has not been wearing his CPAP machine at night. Also of note after talking with family members and review of his charts, he has been recently placed on OxyContin by Dr. Ortega as well as having increase of his amitriptyline that he takes for insomnia. Upon arrival, EMS found his saturations to be in the 70s and he was unresponsive, but shortly after being placed on oxygen, he became alert and oriented x4. Once in the Emergency Room, he was drowsy, but alert. Once taken off oxygen again, he desaturated quickly down into the 70s at 73% on room air. He was then started on CPAP and after his blood gasses came back, they showed in had pCO2 59, pO2 64, pH 7.36, saturation 93%. After starting on BiPAP, he did improve his saturations and repeat ABG showed pO2 91, pCO2 dropped just slightly to 58 and saturation 97%. Chemistry showed a mild leukocytosis with a left shift, but no obvious signs of infectious source. He did have an elevated D- dimer of 0.54 and due to this, he had a CT of the chest to rule out pulmonary embolism, which per radiologic interpretation there was no evidence of acute pulmonary emboli. There was note of noncalcified 1.2 cm pulmonary nodule within the right lung that was worrisome for malignancy that has not been seen previously. Electrolytes were within normal limits except for just a slightly low chloride at 96. Glucose 160. Troponin and liver functions all within normal limits. Urinalysis was within normal limits. Toxicology screen was negative as tested for all substances on urine drug screen. Given that he had a leukocytosis, he was initially started on antibiotics after blood cultures were drawn that included Rocephin. After being on BiPAP, the patient was able to transition for a short period of time on nasal cannula and remained alert and oriented. Given that he was showing significant desaturations and is O2 dependent, there were concerns that the patient may have been stacking his doses of amitriptyline and OxyContin, resulting in his decreased responsiveness complicated by some hypercapnic episode. Dr. Primo Stroud requested the patient be admitted for continuation of treatment and evaluation of possible infectious source yet to be identified and close monitoring of his respiratory status. The patient was admitted in stable condition. PAST MEDICAL HISTORY: Due to the patient's mild confusion with the pain, history was obtained from old records from the clinic. 1. Type 2 diabetes mellitus. 2. Hyperlipidemia. 3. Hypertension. 4. Lumbar disc disease. 5. Review of records from hospitalization in 2017 showed he had an episode of bacteremia that was secondary to Staphylococcus hominis and source identified to be left sacroiliac joint abscess. 6. Chronic pain syndrome with a pain pump implantation. 7. Obstructive sleep apnea. 8. 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 PAST SURGICAL HISTORY: 1. Laparoscopic cholecystectomy in 1999. 2. Lumbar surgery x2. 3. Pain pump implantation, uncertain date. Prior pain management physician is retired. HOME MEDICATIONS: Awaiting an updated list from [facility], but list at time of admission included: 1. Metformin 1000 mg b.i.d. 2. Toprol XL 100 mg daily. 3. Clonidine 0.2 mg b.i.d. 4. Amlodipine 10 mg daily. 5. Simvastatin 20 mg daily. Review of clinic records show list of home medications in addition to the above as: 6. Tizanidine 4 mg at bedtime. 7. Amitriptyline 50 mg 1 to 2 tablets at bedtime. 8. Losartan/hydrochlorothiazide 10/325, 1 tablet daily. 9. Gabapentin 400 mg 1 t.i.d. 10. Potassium chloride 1 tablet daily. 11. Spironolactone 25 mg half tablet daily. 12. Claritin 10 mg daily. 13. Famotidine 20 mg twice daily. 14. Flonase 2 sprays daily. 15. Singulair 10 mg daily. ALLERGIES: NO KNOWN DRUG ALLERGIES. FAMILY HISTORY: Father at age 29 from heat stroke. Mother at age 69 with cardiovascular disease. SOCIAL HISTORY: The patient is a retired [employer] out. He is . He has smoked previously but quit in 1979. He denies any alcohol or illicit drug use. REVIEW OF SYSTEMS: CONSTITUTIONAL: Positive fro general malaise, weakness. HEENT: Negative for sore throats, earaches, nasal congestion, visual disturbances. RESPIRATORY: Negative for shortness of breath, wheezing, coughing. CARDIOVASCULAR: Negative for chest pain, palpitations or syncopal episodes. GASTROINTESTINAL: Negative for nausea, vomiting, diarrhea or abdominal pain. GENITOURINARY: Negative for dysuria, hematuria, polyuria. MUSCULOSKELETAL: Negative for joint swelling, arthralgias, myalgias. Positive for chronic back pain. NEUROLOGIC: As noted in history of present illness, but denies any ataxia or seizure activity. He is unsure if he has ever had any syncopal episodes. He denies any focal neurologic or sensory deficits. PHYSICAL EXAMINATION: VITAL SIGNS: On admission to the Emergency Room, temperature 97.3, pulse 74, blood pressure 167/83, respirations 12, saturation 73% on room air. After placing on BiPAP at 35% FIO2, he increased to 95%, respirations 22. Admission weight 131.8 kg. GENERAL: On admission to the Medical/Surgical Floor, the patient is alert, appears to be in no acute distress. He is obese and unkept. HEENT: Tympanic membranes clear bilaterally. Oropharynx is pink, moist without any lesions. NECK: Supple, nontender with full range of motion. No jugular venous distention noted. RESPIRATORY: Lungs clear to auscultation bilaterally without any rhonchi, wheezes, or rales. CARDIOVASCULAR: Regular rate and rhythm without any appreciable murmurs, gallops, or rubs. ABDOMEN: Soft, nontender, but obese. Positive bowel sounds. BACK: No CVA tenderness, no vertebral tenderness. No other traumatic injuries. EXTREMITIES: Atraumatic and able to move all extremities ad stephanie. There is no cyanosis, clubbing or edema. NEUROLOGIC: The patient is oriented times three. Cranial nerves II-XII are grossly intact. Facial features are symmetrical. Extraocular movements are within normal limits. There is no nystagmus noted. LABORATORY: CBC showed leukocytosis of 12,000, hemoglobin 14.9, hematocrit 45.7, platelet count 238,000. Differential did show a left shift. Coagulation studies showed normal PT, PTT. D-dimer slightly elevated at 0.54. Blood gas analysis initially showed pH 7.35, pCO2 69, pO2 64, bicarb 32, saturation 93% on nasal cannula. After BiPAP, pH 7.37, pO2 91, pCO2 58, saturation 97% on 35% FIO2. Chemistry showed normal electrolytes except for slightly low chloride at 96, BUN 14, creatinine 0.93, glucose 160, lactic acid 1.1. Liver functions all within normal limits. Magnesium normal at 1.9, calcium 8.9. Troponin less than 0.05. BNP normal. Urinalysis within normal limits. Toxicology, urine drug screen was negative for all substances tested on 7-panel screen. MICROBIOLOGY: Blood cultures pending. Influenza A and B by PCR negative. RADIOLOGY: CT of the head without contrast in the Emergency Room prior to admission showed no acute intracranial abnormalities. He had a single-view chest x-ray and per radiologic interpretation showed no evidence of acute cardiopulmonary disease. CTA of the chest and thorax to rule out pulmonary embolism per radiologic interpretation showed a noncalcified 1.2 cm pulmonary nodule within the right lung, worrisome for malignancy. Recommend comparison to previous exams when available or PET scan. There is no CTA evidence of acute pulmonary emboli. Filling defects within the esophagus which could represent retained food material. ASSESSMENT: 1. Altered mental status with questionable metabolic encephalopathy, but no obvious signs of infection, probably due to acute hypoxic hypercapnic respiratory failure from excessive narcotics or amitriptyline dosing accidentally. 2. Leukocytosis, uncertain etiology, with a past history of previous sacroiliac abscess and bacteremia due to a Staphylococcus hominis requiring multiple weeks of antibiotic therapy with no current signs of obvious infection source. 3. Recent falls, probably due to #1. 4. Diabetes mellitus, type 2. 5. Hypertension. 6. Hyperlipidemia. 7. Chronic pain syndrome, probably contributing to #1 with poor management of medications. 8. Chronic lower back pain secondary to #7. 9. Obesity with body mass index of 40.5. PLAN: The patient is going to be admitted to the Medical/Surgical Floor for further ongoing treatment and evaluation. He will retain BiPAP as needed through the day and night. We will reassess in the morning with laboratory studies. I did talk to his daughter at length who was unsure what kind of infection he had in the past and she thought this was the result of what has been happening with his falls and confusion. However, it was noted after reviewing the clinic chart that he had been started on OxyContin within the last several weeks by Dr. Ortega as well as his amitriptyline dose had increased for his insomnia. Also, it was noted he did have a previous SI joint abscess that was due to a Staphylococcus hominis and bacteremia and was treated with cefepime. Given his past history and uncertain etiology at this point of the leukocytosis, I will go ahead and start him on cefepime. We have blood cultures pending. I feel like this is probably more of a poor management of his pain medications with accidental abuse and forgetfulness of taking his medications. We will need to talk to Dr. Collins, his primary care provider, and clarify some of the orders in regards to the amitriptyline and his OxyContin as his very daughter is very adamant that he is not supposed to be on these medications. A review of his records from his pharmacy at [facility] did show he has been written a prescription by Dr. Ortega for OxyContin. We will keep him on BiPAP as needed. We will monitor labs closely and continue antibiotics until we can further rule out any bacteremia or other sources of infection. Given that fact, he will have to be here at least 48 to 72 hours until we have blood cultures that are confirmed to be negative for 3 days. We will work to establish a better medication routine and work with Dr. Collins, his primary care provider, as well as his family to further assist in management of his medications at home once discharged. His currently is in the hospital. She should be discharged tomorrow. The patient would benefit from at least a social work assistant consultation to further address the home situation and to ensure the patient is safe to discharge home. We will monitor the patient closely, recheck labs in the morning and as more information becomes available, we will address that and update his current visit. #[id number] MTDD
[2018-08-14] MEDS ORDERED: ONDANSETRON INJ 4 MG/2 ML VIAL IV PRN (19:36)
[2018-08-14] MEDS ORDERED: SODIUM CHLORIDE 0.9% (FLUSH) 10 ML SYG IV PRN (19:36)
[2018-08-14] MEDS ORDERED: GLUCAGON INJ 1 MG VIAL SUBCU PRN (19:38)
[2018-08-14] MEDS ORDERED: DEXTROSE 50% 25 GM/50 ML SYG IV PRN (19:38)
[2018-08-14] MEDS ORDERED: IV SET AND CAP CHANGE INJ INJ SCH (20:00)
[2018-08-14] MEDS ORDERED: metFORMIN HCL 500 MG TAB PO SCH (21:00)
[2018-08-14] MEDS ORDERED: SIMVASTATIN 20 MG PO SCH (21:00)
[2018-08-14] MEDS ORDERED: cloNIDine HCL 0.1 MG TAB ONE (22:17)
[2018-08-14] MEDS ORDERED: cefOXitin SODIUM 2 GM INJ IVPB ONE (22:18)
[2018-08-14] MEDS ORDERED: SIMVASTATIN 20 MG TAB ONE (22:18)
[2018-08-14] MEDS ORDERED: CEFEPIME 2 GM VIAL ONE (22:25)
[2018-08-14] MEDS: CEFEPIME 2 GM in SODIUM CHL 0.9% 50ML MIN-BAG+ 50 ML IVPB SCH (22:28)
[2018-08-14] MEDS: ENOXAPARIN SODIUM 40 MG/0.4 ML SYG SUBCU SCH (22:29)
[2018-08-14] MEDS: NON-FORMULARY MEDICATION 1 EA MIS (Clonidine Hcl [Clonidine Hcl] 0.2 MG) PO SCH (22:29)
[2018-08-14] MEDS: INSULIN LISPRO 100 UNITS/ML PEN SUBCU SCH (22:57)
[2018-08-15] MEDS ORDERED: SODIUM CHLORIDE 0.9% 50ML 50 ML ONE (07:12)
[2018-08-15] MEDS ORDERED: CEFEPIME 2 GM VIAL ONE ×2 (07:12→19:20)
[2018-08-15] MEDS: INSULIN LISPRO 100 UNITS/ML PEN SUBCU SCH ×4 (07:18→21:31)
[2018-08-15] MEDS: CEFEPIME 2 GM in SODIUM CHL 0.9% 50ML MIN-BAG+ 50 ML IVPB SCH ×2 (07:25→19:29)
[2018-08-15] MEDS ORDERED: NON-FORMULARY MEDICATION 1 EA MIS (Amlodipine Besylate [Norvasc] 10 MG) PO SCH (09:00)
[2018-08-15] MEDS ORDERED: GABAPENTIN 800 MG PO SCH (09:00)
[2018-08-15] MEDS ORDERED: NON-FORMULARY MEDICATION 1 EA MIS (Losartan Potassium & Hydrochlo [Losartan Potassium/Hydr PO SCH (09:00)
[2018-08-15] MEDS ORDERED: amLODIPine BESYLATE 5 MG TAB ONE (09:17)
[2018-08-15] MEDS ORDERED: GABAPENTIN 400 MG CAP ONE (09:17)
[2018-08-15] MEDS ORDERED: cloNIDine HCL 0.1 MG TAB ONE (09:17)
[2018-08-15] MEDS: METOPROLOL SUCCINATE XL 100 MG TAB PO SCH (09:26)
[2018-08-15] MEDS: ACETAMINOPHEN 325 MG TAB PO PRN (09:28)
[2018-08-15] MEDS: NON-FORMULARY MEDICATION 1 EA MIS (Clonidine Hcl [Clonidine Hcl] 0.2 MG) PO SCH (09:30)
[2018-08-15] MEDS: hydroCHLOROthiazide 25 MG TAB PO SCH (10:32)
[2018-08-15] MEDS: LOSARTAN POTASSIUM 100 MG TAB PO SCH (10:32)
[2018-08-15] MEDS: cloNIDine HCL 0.1 MG TAB PO SCH ×3 (13:45→21:31)
--- NOTE | 2018-08-15 15:53 | PN ---
SUPERVISING PHYSICIAN: Alexandra Collins MD DATE: 08/15/18 SUBJECTIVE: The patient this morning feels like he is more clear headed and thinking better. He does feel like he did take too much of his pain medications and amitriptyline. No family is present currently. Daughter is out of town today. OBJECTIVE: VITAL SIGNS: Temperature 97.5. Pulse 84. Blood pressure 166/82. Respiratory rate 92. Respirations 18. Saturation 94% on nasal cannula at 3 liters. I&Os show negative balance of 164 with 236 in and 400 out. Weight 134 kg. He has had a couple of bowel movements. GENERAL: The patient is alert. He appears to be comfortable, in no acute distress. CHEST: Lungs clear to throughout, just diminished towards the bases. ABDOMEN: Obese, but soft, nondistended. Positive bowel sounds. EXTREMITIES: No cyanosis, clubbing or edema. NEUROLOGIC: Alert and oriented times three with notable focal deficits. LABORATORY: White count no is normalized to 10,800, hemoglobin 14.7, hematocrit 44.6, platelet count 257,000. Differential continues to show a left shift. Chemistries show slightly low chloride at 97, otherwise within normal limits on potassium and sodium. His anion gap is normal. BUN 19, creatinine 0.9. Glucose 222. Calcium 8.7. Liver functions all within normal limits. MICROBIOLOGY: Blood cultures remain negative. Influenza A and B was negative by PCR. RADIOLOGY: No additional radiographic studies today. ASSESSMENT: 1. Altered mental status on admission, possibly related to a metabolic encephalopathy, but no obvious signs of infection, more likely due to a hypoxic hypercapnic respiratory event secondary to excessive sedation from narcotics and amitriptyline, improving with BiPAP and withholding medications. 2. Leukocytosis, uncertain etiology, improving overnight with fluids and antibiotics with the patient having a past history of sacroiliac abscess and bacteremia due to a Staphylococcus hominis that required multiple weeks of antibiotic therapy with no current signs of infection. 3. Multiple falls in the past, probably due to #1. 4. Diabetes mellitus, type 2. 5. Hypertension. 6. Hyperlipidemia. 7. Chronic pain syndrome, probably contributing to #1 with poor management of his medications. 8. Right lung nodule measuring 1.2 cm which is concerning for malignancy with recommended PET scan after discharge and further followup. 9. Chronic lower back pain secondary to above. 10. Obesity with body mass index of 40.5. PLAN: We will continue with antibiotics at this point for another 24 hours and then look at discontinuing or changing antibiotics to a lesser strong antibiotic as at this point there are no obvious signs of infectious process. I did talk to him about his OxyContin and his amitriptyline. He is still not sure as to what happened to the medications and how much he took. We will continue to monitor his labs. We will repeat a chest x-ray in the morning. He will certainly need a referral for a sleep study given that he probably has a significant amount of obstructive sleep apnea and is benefiting from BiPAP while in the hospital. Until discharge, we will continue to monitor and treat as needed. At discharge, he will need continued followup regarding the nodule in the right nodule which can be handled through Dr. Collins's office. #[id number] MTDD
[2018-08-15] MEDS: GABAPENTIN 400 MG CAP PO SCH ×2 (16:10→21:30)
[2018-08-15] MEDS ORDERED: SODIUM CHL 0.9% 50ML MIN-BAG+ 50 ML IVPB ONE (19:19)
[2018-08-15] MEDS ORDERED: SIMVASTATIN 20 MG TAB PO SCH (21:00)
[2018-08-15] MEDS: ENOXAPARIN SODIUM 40 MG/0.4 ML SYG SUBCU SCH (21:31)
[2018-08-16 07:28] VITALS: BP 144/78; TEMP 98.7
[2018-08-16] MEDS ORDERED: SODIUM CHL 0.9% 50ML MIN-BAG+ 0 ML IVPB ONE (07:53)
[2018-08-16] MEDS ORDERED: CEFEPIME 2 GM VIAL ONE (07:55)
[2018-08-16 07:57] VITALS: O2SAT 96
[2018-08-16] MEDS ORDERED: amLODIPine BESYLATE 5 MG TAB PO SCH (09:00)
[2018-08-16] MEDS: INSULIN LISPRO 100 UNITS/ML PEN SUBCU SCH (09:13)
[2018-08-16] MEDS: GABAPENTIN 400 MG CAP PO SCH (09:15)
[2018-08-16] MEDS: cloNIDine HCL 0.1 MG TAB PO SCH (09:15)
[2018-08-16] MEDS: hydroCHLOROthiazide 25 MG TAB PO SCH (09:16)
[2018-08-16] MEDS: ACETAMINOPHEN 325 MG TAB PO PRN (09:16)
[2018-08-16] MEDS: LOSARTAN POTASSIUM 100 MG TAB PO SCH (09:16)
[2018-08-16] MEDS: METOPROLOL SUCCINATE XL 100 MG TAB PO SCH (09:16)
[2018-08-16] MEDS: CEFEPIME 2 GM in SODIUM CHL 0.9% 50ML MIN-BAG+ 50 ML IVPB SCH (09:57)
--- NOTE | 2018-09-05 15:12 | DS ---
SUPERVISING PHYSICIAN: Alexandra Collins MD ADMISSION DIAGNOSIS: 1. Altered mental status with questionable metabolic encephalopathy, but no obvious signs of infection, probably due to acute hypoxic hypercapnic respiratory failure from excessive narcotics or amitriptyline dosing accidentally. 2. Leukocytosis, uncertain etiology, with a past history of previous sacroiliac abscess and bacteremia due to a Staphylococcus hominis requiring multiple weeks of antibiotic therapy with no current signs of obvious infection source. 3. Recent falls, probably due to #1. 4. Diabetes mellitus, type 2. 5. Hypertension. 6. Hyperlipidemia. 7. Chronic pain syndrome, probably contributing to #1 with poor management of medications. 8. Chronic lower back pain secondary to #7. 9. Obesity with body mass index of 40.5. DISCHARGE DIAGNOSIS: 1. Altered mental status on admission, possibly related to a metabolic encephalopathy, but no obvious signs of infection, more likely due to a hypoxic hypercapnic respiratory event secondary to excessive sedation from narcotics and amitriptyline, improving with BiPAP and withholding medications. 2. Leukocytosis, uncertain etiology, improving overnight with fluids and antibiotics with the patient having a past history of sacroiliac abscess and bacteremia due to a Staphylococcus hominis that required multiple weeks of antibiotic therapy with no current signs of infection. 3. Multiple falls in the past, probably due to #1. 4. Diabetes mellitus, type 2. 5. Hypertension. 6. Hyperlipidemia. 7. Chronic pain syndrome, probably contributing to #1 with poor management of his medications. 8. Right lung nodule measuring 1.2 cm which is concerning for malignancy with recommended PET scan after discharge and further followup. 9. Chronic lower back pain secondary to above. 10. Obesity with body mass index of 40.5. REASON FOR HOSPITALIZATION: Mr. Martino is a 68-year-old male patient who presented to the Emergency Room via EMS due to being unresponsive at home. Per EMS report, the patient was found by a family member at home and at that point, he was not talking to anybody. They note the last time he was seen normal was the night before. It is noted he does have a history of chronic obstructive pulmonary disease and obstructive sleep apnea, but has not been wearing his CPAP machine at night. Also of note after talking with family members and review of his charts, he has been recently placed on OxyContin by Dr. Ortega as well as having increase of his amitriptyline that he takes for insomnia. Upon arrival, EMS found his saturations to be in the 70s and he was unresponsive, but shortly after being placed on oxygen, he became alert and oriented x4. Once in the Emergency Room, he was drowsy, but alert. Once taken off oxygen again, he desaturated quickly down into the 70s at 73% on room air. He was then started on CPAP and after his blood gasses came back, they showed in had pCO2 59, pO2 64, pH 7.36, saturation 93%. After starting on BiPAP, he did improve his saturations and repeat ABG showed pO2 91, pCO2 dropped just slightly to 58 and saturation 97%. Chemistry showed a mild leukocytosis with a left shift, but no obvious signs of infectious source. He did have an elevated D- dimer of 0.54 and due to this, he had a CT of the chest to rule out pulmonary embolism, which per radiologic interpretation there was no evidence of acute pulmonary emboli. There was note of noncalcified 1.2 cm pulmonary nodule within the right lung that was worrisome for malignancy that has not been seen previously. Electrolytes were within normal limits except for just a slightly low chloride at 96. Glucose 160. Troponin and liver functions all within normal limits. Urinalysis was within normal limits. Toxicology screen was negative as tested for all substances on urine drug screen. Given that he had a leukocytosis, he was initially started on antibiotics after blood cultures were drawn that included Rocephin. After being on BiPAP, the patient was able to transition for a short period of time on nasal cannula and remained alert and oriented. Given that he was showing significant desaturations and is O2 dependent, there were concerns that the patient may have been stacking his doses of amitriptyline and OxyContin, resulting in his decreased responsiveness complicated by some hypercapnic episode. Dr. Primo Stroud requested the patient be admitted for continuation of treatment and evaluation of possible infectious source yet to be identified and close monitoring of his respiratory status. The patient was admitted in stable condition. LABORATORY: White count on admission was 12,000. At discharge, it was 10,800. Hemoglobin 14.7, hematocrit 44.6 at discharge. Platelet count 257,000. Differential did show a continued left shift both on admission and at discharge. PT and PTT were normal. D-dimer was slightly elevated at 0.54. Blood gas analysis initially showed pH 7.36, pCO2 59, pO2 64, bicarb normal at 32. After initiation of treatment, pO2 was up to 91, pH 7.37, pCO2 58. Oxygen saturation 97% on 2 liters nasal cannula. Chemistries on admission showed normal electrolytes with BUN 14, creatinine 0.39. Liver functions all within normal limits. Troponin less than 0.01. BNP normal. Electrolytes showed BUN 19, creatinine 0.9, blood sugars ranged between 139 and 243. Lactic acid normal at 1.1, magnesium normal at 1.9. Urinalysis was within normal limits. Toxicology screen was negative. MICROBIOLOGY: Blood culture remained negative after 5 days. Influenza swab for A and B by PCR was negative for both. RADIOLOGY: CT of the head in the Emergency Room prior to admission which per radiologic interpretation showed no acute intracranial abnormalities without contrast. She also had a chest x-ray and per radiologic interpretation showed no evidence of acute cardiopulmonary disease. This was followed with a CT of the chest/thorax due to his elevated D-dimer and per radiologic interpretation showed noncalcified pulmonary nodule within the right lung worrisome for malignancy. There was no CT evidence of acute pulmonary emboli. Please see full report for full details. HOSPITAL COURSE: Mr. Martino was admitted on 08/14/18 as noted above for altered mental status due to metabolic encephalopathy from probable infectious source versus sedation from narcotics and amitriptyline. He was treated aggressively and amitriptyline and oxycodone were held. He showed good clinical improvement with treatment course and it was felt he had improved enough to continue with outpatient management. PLAN: Mr. Martino was discharged on 08/16/18 with instructions to followup with Dr. Collins and resume home medications as instructed below and return to the hospital for any concerning symptoms. He was given information on obstructive sleep apnea as well as referral for a sleep study as needed. HOME MEDICATIONS AT DISCHARGE: 1. Gabapentin 800 mg. 2. Oxycodone 5 mg t.i.d. as needed. 3. Losartan/hydrochlorothiazide 10/25 mg 1 daily. 4. Amitriptyline 150 mg at bedtime. 5. Metformin 1000 mg b.i.d. 6. Clonidine 0.4 mg q.i.d. 7. Toprol XL 100 mg daily. 8. Norvasc 10 mg daily. 9. Simvastatin 20 mg daily. ACTIVITY: Increase as tolerated. DIET: Increase as tolerated. CONDITION AT DISCHARGE: Stable and improving. DISPOSITION: The patient was discharged home to care of family. [facility][id number] [facility]
== END 2018-08-16 12:00 | disposition home or self-care (01) | DRG 917 ==
LOC: ER 11:49 → UNDOADMIN 16:47 → MS 16:47
PROVIDERS: ADMIT Nurse Practitioner Family; ATTEND Nurse Practitioner Family
PROC: B32T1ZZ Computerized Tomography (CT Scan) of Left Pulmonary Artery using Low Osmolar Contrast (ICD-10-PCS; principal; 2018-08-14)
PROC: B32S1ZZ Computerized Tomography (CT Scan) of Right Pulmonary Artery using Low Osmolar Contrast (ICD-10-PCS; 2018-08-14)
DX: T43.011A Poisoning by tricyclic antidepressants, accidental (unintentional), initial encounter (principal); J96.01 Acute respiratory failure with hypoxia; Z68.41 Body mass index [BMI] 40.0-44.9, adult; J96.02 Acute respiratory failure with hypercapnia; T40.601A Poisoning by unspecified narcotics, accidental (unintentional), initial encounter; Y92.9 Unspecified place or not applicable; R29.6 Repeated falls; D72.829 Elevated white blood cell count, unspecified; J44.9 Chronic obstructive pulmonary disease, unspecified; E11.9 Type 2 diabetes mellitus without complications; I10 Essential (primary) hypertension; E66.9 Obesity, unspecified; E78.5 Hyperlipidemia, unspecified; G89.4 Chronic pain syndrome; M54.5 Low back pain; R91.1 Solitary pulmonary nodule; G47.33 Obstructive sleep apnea (adult) (pediatric); R79.89 Other specified abnormal findings of blood chemistry; G47.00 Insomnia, unspecified; Z79.84 Long term (current) use of oral hypoglycemic drugs; Z79.899 Other long term (current) drug therapy; Z87.891 Personal history of nicotine dependence

== ENCOUNTER 2018-10-10 05:46 | Day surgery (SDC) | payer MEDICARE, OTHER ==
[2018-10-10] MEDS ORDERED: TROP 1%/CYCLOPEN 1%/PHENYL 2% DROPS ONE (06:00)
[2018-10-10] MEDS ORDERED: MOXIFLOXACIN HCL (OPHTH) 1 DROP DROPS ONE (06:00)
[2018-10-10] MEDS ORDERED: PROPARACAINE 0.5% OPHTH SOL 15 ML BTTL ONE (06:00)
[2018-10-10] MEDS ORDERED: MIDAZOLAM INJ 2 MG/2 ML VIAL ONE ×2 (08:43→08:50)
[2018-10-10] MEDS ORDERED: PROPARACAINE 0.5% OPHTH SOL 15 ML BTTL LEFT_EYE ONE (08:46)
[2018-10-10] MEDS ORDERED: MOXIFLOXACIN HCL (OPHTH) 1 DROP DROPS LEFT_EYE ONE ×2 (08:58→09:13)
[2018-10-10] MEDS ORDERED: LIDOCAINE 1% 2 ML VIAL INJ ONE ×2 (08:58→09:01)
[2018-10-10] MEDS ORDERED: TOBRAMYCIN SULF 0.3 % OPHT SOL 1 DROP LEFT_EYE ONE ×2 (08:59→09:14)
[2018-10-10] MEDS ORDERED: DEXAMETHASONE 0.1% OPHTH SOL 1 DROP LEFT_EYE ONE ×2 (08:59→09:14)
[2018-10-10] MEDS ORDERED: BRIMONIDINE 0.2% OPHTH DROPS LEFT_EYE ONE ×2 (08:59→09:14)
== END 2018-10-10 09:44 | disposition home health service (06) ==
LOC: AMB 05:46
PROVIDERS: ATTEND Ophthalmology
DX: H25.12 Age-related nuclear cataract, left eye (principal); I10 Essential (primary) hypertension; E11.36 Type 2 diabetes mellitus with diabetic cataract; Z87.891 Personal history of nicotine dependence; G47.30 Sleep apnea, unspecified; E66.9 Obesity, unspecified; Z79.84 Long term (current) use of oral hypoglycemic drugs; Z79.899 Other long term (current) drug therapy
CPT/HCPCS: 00142; 66984; 82948; J2250

== ENCOUNTER 2018-10-12 05:20 | Day surgery (SDC) | payer MEDICARE, OTHER ==
[2018-10-12] MEDS ORDERED: PROPOFOL 200 MG/20 ML VIAL IV ONE (07:00)
[2018-10-12] MEDS ORDERED: LACTATED RINGERS 1,000 ML ONE (07:48)
[2018-10-12 12:40] VITALS: BP 120/82; TEMP 98; O2SAT 93
--- NOTE | 2018-10-12 13:15 | OP ---
DATE OF PROCEDURE: 10/12/18 PREPROCEDURE DIAGNOSIS: 1. Surveillance for colonic polyps. POSTPROCEDURE DIAGNOSIS: 1. Colonic polyps. 2. Internal hemorrhoids. PROCEDURE: 1. Colonoscopy. SURGEON: Joon Morales MD COMPLICATIONS: No immediate complications. SEDATION: The patient was sedated via IV propofol by the Anesthesia Department. CONSENT: Prior to the procedure, risks, benefits and alternatives to the therapy were discussed with the patient. The risks included bleeding, infection, perforation and . The patient agreed to the procedure and signed a consent. PREPROCEDURE ANESTHESIA ASSESSMENT: Mallampati class type 2, ASA grade assessment type 2. Throughout the procedure, the patient's blood pressure and additional vital signs were closely monitored. PROCEDURE: The patient was placed in the left lateral decubitus position and a rectal examination was performed. The rectal examination was within normal limits. The Olympus colonoscope was passed in the anus all the way into the cecum as identified by the ileocecal valve appendiceal orifice. The scope was retracted and the mucosa was visualized. The entirety of the exam was performed under direct visualization. Retroflexion was performed in the rectum. Preparation quality was good. The withdrawal time was greater than 6 minutes. The patient tolerated the procedure well. FINDINGS: 1. Diminutive sessile polyp was found in the ascending colon. Resection was performed with cold snare, however, retrieval was not complete. 2. Three sessile polyps were found in the descending colon. The polyps measured 5 to 8 mm in size. Removal was achieved with cold snare and complete retrieval was achieved. No bleeding during or at the end of the procedure. 3. Small non-bleeding internal hemorrhoids were found in retroflexion. RECOMMENDATION: 1. Return the patient home. 2. Resume previous diet favoring high-fiber foods. 3. Followup pathology results. 4. Repeat colonoscopy in the next 3 years if evidence of adenomatous tissue. Otherwise, in 5 years. 5. Return to referring physicians office as previously scheduled. 6. Return to my office p.r.n. 7. Findings were discussed with the patient and family members. #[id number] MTDD
== END 2018-10-12 12:35 | disposition home or self-care (01) ==
LOC: AMB 05:20
PROVIDERS: ATTEND Internal Medicine Gastroenterology
DX: Z12.11 Encounter for screening for malignant neoplasm of colon (principal); D12.4 Benign neoplasm of descending colon; K64.8 Other hemorrhoids; E11.9 Type 2 diabetes mellitus without complications; Z86.010 Personal history of colon polyps
CPT/HCPCS: 00812; 45385; 82948; 88305; J3490; J7120

== ENCOUNTER → 2018-10-20 | Outpatient (CLI) | payer MEDICARE, OTHER ==
--- NOTE | 2018-10-21 00:04 | RAD ---
EXAM DESCRIPTION: Elbow,Left 3 Views CLINICAL HISTORY: 68 years ,Male M25.522 COMPARISON: None. TECHNIQUE: LEFT elbow, Three view FINDINGS: No acute fractures or dislocations are identified. No osseous destructive lesions. No evidence of joint effusion. IMPRESSION: No acute fractures are identified. If symptoms persist, followup is recommended in 7-10 days. Electronically signed by: Laureen Guerrier MD 10/21/2018 12:01 AM CDT
== END ==
LOC: RAD 08:12
PROVIDERS: ATTEND Orthopaedic Surgery
DX: M25.552 Pain in left hip (principal)

== ENCOUNTER 2018-10-24 06:00 | Day surgery (SDC) | payer MEDICARE, OTHER ==
[~2018-10-24 06:00] MED LIST: MOXIFLOXACIN HCL (OPHTH) 1 DROP DROPS ONE; PROPARACAINE 0.5% OPHTH SOL 15 ML BTTL ONE; TROP 1%/CYCLOPEN 1%/PHENYL 2% DROPS ONE
[2018-10-24] MEDS ORDERED: MIDAZOLAM INJ 2 MG/2 ML VIAL ONE (11:30)
[2018-10-24] MEDS ORDERED: PROPARACAINE 0.5% OPHTH SOL 15 ML BTTL RIGHT_EYE ONE (11:32)
[2018-10-24] MEDS ORDERED: LIDOCAINE 1% 2 ML VIAL INJ ONE (11:45)
[2018-10-24] MEDS ORDERED: DEXAMETHASONE 0.1% OPHTH SOL 1 DROP RIGHT_EYE ONE ×2 (11:55→11:58)
[2018-10-24] MEDS ORDERED: MOXIFLOXACIN HCL (OPHTH) 1 DROP DROPS RIGHT_EYE ONE ×2 (11:55→11:57)
[2018-10-24] MEDS ORDERED: TOBRAMYCIN SULF 0.3 % OPHT SOL 1 DROP RIGHT_EYE ONE ×2 (11:55→11:58)
[2018-10-24] MEDS ORDERED: BRIMONIDINE 0.2% OPHTH DROPS RIGHT_EYE ONE ×2 (11:56→11:58)
== END 2018-10-24 12:32 | disposition home or self-care (01) ==
LOC: AMB 06:00
PROVIDERS: ATTEND Ophthalmology
DX: H25.11 Age-related nuclear cataract, right eye (principal); I10 Essential (primary) hypertension; E11.36 Type 2 diabetes mellitus with diabetic cataract; Z79.899 Other long term (current) drug therapy
CPT/HCPCS: 00142; 66984; 82948; J2250

== ENCOUNTER → 2019-03-08 | Outpatient (CLI) | payer MEDICARE, OTHER ==
--- NOTE | 2019-03-09 09:00 | CT ---
CT right elbow without contrast INDICATION: Elbow pain NOS TECHNIQUE: Helical CT images right elbow with multiplanar reformats This exam was performed according to our departmental dose-optimization program, which includes automated exposure control, adjustment of the mA and/or kV according to patient size and/or use of iterative reconstruction technique. FINDINGS: Minimal osteophyte formation of the elbow indicating mild osteoarthrosis. No unstable osteochondral lesion. No destructive process. No acute fracture. No soft tissue mass or adenopathy. Mild edema in the olecranon bursa. IMPRESSION: Mild osteoarthrosis of the elbow Mild olecranon bursal edema/thickening Electronically signed by: Jose Antonio Calderon MD 03/09/2019 8:59 AM CDT
--- NOTE | 2019-03-09 09:08 | CT ---
CT left elbow without contrast INDICATION: Elbow pain NOS TECHNIQUE: Helical CT images through the left elbow with multiplanar reformats This exam was performed according to our departmental dose-optimization program, which includes automated exposure control, adjustment of the mA and/or kV according to patient size and/or use of iterative reconstruction technique. FINDINGS: Mild osteoarthrosis of the elbow with marginal osteophytes. No unstable osteochondral lesion. No acute fracture or dislocation. No additional internal derangement. IMPRESSION: Mild osteoarthrosis of the left elbow without acute process Electronically signed by: Jose Antonio Calderon MD 03/09/2019 9:07 AM CDT
== END ==
LOC: CT 15:14
PROVIDERS: ATTEND Orthopaedic Surgery
DX: M19.021 Primary osteoarthritis, right elbow (principal); M19.022 Primary osteoarthritis, left elbow; M25.821 Other specified joint disorders, right elbow

== ENCOUNTER → 2019-06-06 | Outpatient (CLI) | payer MEDICARE, OTHER | LOC: LAB.O 10:55 | PROVIDERS: ATTEND Orthopaedic Surgery | DX: Z01.818 Encounter for other preprocedural examination (principal) ==

== ENCOUNTER → 2019-12-05 | Outpatient (CLI) | payer MEDICARE, OTHER | LOC: GMAE 14:11 | PROVIDERS: ATTEND Family Medicine | DX: Z12.5 Encounter for screening for malignant neoplasm of prostate (principal); I10 Essential (primary) hypertension; M54.5 Low back pain; E11.42 Type 2 diabetes mellitus with diabetic polyneuropathy | CPT/HCPCS: 83735; 84443; G0103 ==

== ENCOUNTER → 2019-12-21 | Outpatient (CLI) | payer MEDICARE, OTHER ==
--- NOTE | 2019-12-21 14:58 | RAD ---
EXAM DESCRIPTION: Knee,Right 1 or 2 Views CLINICAL HISTORY: 69 years Male, PAIN IN RIGHT KNEE 45 AND [place] TECHNIQUE: 2 views of the right knee were performed. COMPARISON: Radiographs dated 03/03/2017. FINDINGS: The visualized bones appear well mineralized. No acute fracture or dislocation. No evidence of suprapatellar joint effusion. The soft tissues appear grossly unremarkable. Stable 2.7 cm enchondroma in the distal femur. IMPRESSION: No acute abnormality of the right knee. Electronically signed by: Yael Evangelista MD 12/21/2019 2:56 PM CDT
== END ==
LOC: RAD 08:55
PROVIDERS: ATTEND Orthopaedic Surgery
DX: M25.561 Pain in right knee (principal)

== ENCOUNTER 2020-05-15 15:49 | Emergency (ER) | payer MEDICARE, OTHER ==
[2020-05-15] MEDS ORDERED: TETANUS,DIPHTHERIA,PERTUSSIS 1 EA SYG IM ONE (15:54)
--- NOTE | 2020-05-15 15:57 | ED.PDOC ---
History of Present Illness - General Chief Complaint: Trauma Time Seen by Provider: 05/15/20 15:49 Source: patient, RN notes reviewed, Vital Signs reviewed Exam Limitations: no limitations - History of Present Illness Initial Comments: 70 yo male with frequent falls due to knee pain, comes in after he was getting out of his truck and tripped on the curb. landed on his knees and hit the left side of his head. no loc. denies back pain, or inability to walk. has abrasions. no change in vision, chest pain or syncope. unsure when last tetanus was. also has right shoulder pain. Allergies/Adverse Reactions: Allergies NO KNOWN ALLERGY Allergy (Verified 10/07/18 13:14) Home Medications: Ambulatory Orders Amlodipine Besylate [Norvasc] 10 mg PO DAILY 01/04/15 Clonidine HCl 0.4 mg PO QID 01/04/15 Metformin HCl [Metformin Hydrochloride] 1,000 mg PO BID 01/04/15 Simvastatin 20 mg PO BEDTIME 01/04/15 Metoprolol Succinate [Toprol Xl] 100 mg PO DAILY 06/03/17 Amitriptyline HCl [Amitriptyline Hydrochlori] 150 mg PO BEDTIME 08/14/18 Gabapentin 800 mg PO TID 08/14/18 Losartan Potassium & Hydrochlo [Losartan Potassium/Hydroc 100-25 mg] 1 tab PO DAILY 08/14/18 Oxycodone HCl 5 mg PO TID PRN 08/14/18 Review of Systems - Review of Systems Constitutional: Denies: chills, fever EENTM: Denies: blurred vision, ear discharge, nose congestion, throat pain, mouth pain Respiratory: Denies: cough, short of breath, stridor Cardiology: States: no symptoms reported. Denies: chest pain, palpitations, syncope Gastrointestinal/Abdominal: Denies: abdominal pain, diarrhea, nausea, vomiting Genitourinary: States: no symptoms reported. Denies: frequency, hematuria Skin: States: rash Neurological: Denies: headache, numbness, paresthesia, seizure, tingling, tremors, weakness Endocrine: Denies: increased urine, unexplained weight gain, unexplained weight loss Hematologic/Lymphatic: Denies: blood clots, easy bleeding, easy bruising Past Medical History (General) - Patient Medical History Hx Seizures: No Hx Stroke: No Hx Dementia: No Hx Asthma: No Hx of COPD: Yes Hx Cardiac Disorders: Yes Hx Congestive Heart Failure: No Hx Pacemaker: No Hx Hypertension: Yes Hx Thyroid Disease: No Hx Diabetes: Yes Hx Gastroesophageal Reflux: No Hx Renal Disease: No Hx Cancer: No Hx of HIV: No Hx Hepatitis C: No Hx MRSA: No MRSA Source:: Wound - Vaccination History Hx Tetanus, Diphtheria Vaccination: No Hx Influenza Vaccination: No Hx Pneumococcal Vaccination: No - Social History Hx Tobacco Use: No Hx Chewing Tobacco Use: No Hx Alcohol Use: No Hx Substance Use: No Hx Substance Use Treatment: No Hx Depression: No Hx Physical Abuse: No Hx Emotional Abuse: No Hx Suspected Abuse: No - Female History Patient : No Physical Exam - Physical Exam General Appearance: Alert, Comfortable, No apparent distress, Obese, Well Developed, Well Groomed, Well Hydrated, Well Nourished Head Injury: no evidence of injury - other than small abrasian to left parital scalp, no swelling , active bleeding, other - no duarte sign, no raccoon eyes. Eye Exam: bilateral normal ENT Exam: hearing grossly normal, no evidence of ENT injury, no dental injury Peripheral Pulses: radial,right: 2+, radial,left: 2+ Cardiovascular/Respiratory: regular rate, rhythm, no M/R/G, normal peripheral pulses, no JVD, normal breath sounds, no respiratory distress Gastrointestinal/Abdominal: normal bowel sounds, non tender, soft, no organomeg azalia, no pulsatile mass Back Exam: normal inspection, no CVA tenderness, no vertebral tenderness Extremity Exam: normal range of motion, non-tender, no pedal edema, other - bilateral superifical abrasians on both knees 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 05/15/20 17:53 The data reviewed when caring for this patient included: nurse notes, prior records, etc. The history and assessments from nurses notes were reviewed and considered, and the patient's home medication list was also reviewed and considered. My assessment and the results of testing completed here in the ED were discussed with the patient/family. All questions were answered, and they express understanding of my assessment and the plan. They have been instructed to return if their symptoms worsen, and have been asked to follow up with their primary care physician to recheck today's presenting complaint. return precautions given. vss, patient discharged home in stable condition. Esperanza Billings DO #[id number] - EKG/XRAY/CT XRAY: chest - no acute pathology noted Departure - Departure Clinical Impression: Abrasion Fall Qualifiers: Encounter type: initial encounter Qualified Code(s): W19.XXXA - Unspecified fall, initial encounter Knee pain Qualifiers: Chronicity: unspecified Laterality: bilateral Qualified Code(s): M25.561 - Pain in right knee Sprain of shoulder Qualifiers: Encounter type: initial encounter Shoulder sprain type: unspecified sprain Laterality: right Qualified Code(s): S43.401A - Unspecified sprain of right shoulder joint, initial encounter Time of Disposition: 17:06 Disposition: Discharge to Home or Self Care Condition: Fair Departure Forms: ED Discharge - Pt. Copy, Patient Portal Self Enrollment Instructions: DI for Trauma, Preventing Falls in the Older Adult, Wound Care (DC), Knee Pain (DC) Diet: resume usual diet Activity: increase activity as tolerated Referrals: JONY LOWERY MD [Primary Care Provider] - 1-5 Days Home Medications: Ambulatory Orders Amlodipine Besylate [Norvasc] 10 mg PO DAILY 01/04/15 Clonidine HCl 0.4 mg PO QID 01/04/15 Metformin HCl [Metformin Hydrochloride] 1,000 mg PO BID 01/04/15 Simvastatin 20 mg PO BEDTIME 01/04/15 Metoprolol Succinate [Toprol Xl] 100 mg PO DAILY 06/03/17 Amitriptyline HCl [Amitriptyline Hydrochlori] 150 mg PO BEDTIME 08/14/18 Gabapentin 800 mg PO TID 08/14/18 Losartan Potassium & Hydrochlo [Losartan Potassium/Hydroc 100-25 mg] 1 tab PO DAILY 08/14/18 Oxycodone HCl 5 mg PO TID PRN 08/14/18
--- NOTE | 2020-05-15 16:54 | CT ---
EXAM DESCRIPTION: Head CLINICAL HISTORY: fall COMPARISON: August 14, 2018 TECHNIQUE: Non contrast cranial CT This exam was performed according to our departmental dose-optimization program, which includes automated exposure control, adjustment of the mA and/or kV according to patient size and/or use of iterative reconstruction technique. FINDINGS: Bony calvarium is intact. Patchy opacification posterior left ethmoid sinus cells little changed from August 2018 study consistent with chronic sinus disease. Petrous ridges and paranasal sinuses otherwise clear. Small normal ventricular system without hydrocephalus or mass effect or midline shift. No focal gliosis or evidence of subarachnoid or parenchymal or intracranial hemorrhage noted. No subdural hematoma evident. Third and fourth ventricles are midline. No evidence of acute intracranial injury noted. IMPRESSION: 1. Normal CT of the head without contrast enhancement. 2. Chronic opacification posterior left ethmoid sinus, unchanged August 2018, most consistent with chronic sinus disease. Electronically signed by: Davin Montenegro MD 05/15/2020 4:52 PM CLASS 1 OWNER OPERATOR
--- NOTE | 2020-05-15 16:54 | RAD ---
EXAM DESCRIPTION: Knee,Left Complete CLINICAL HISTORY: 70 years, Male, fall COMPARISON: None TECHNIQUE: Three views of the left knee FINDINGS: The knee is normally aligned and mineralized. No fracture or deformity or destructive process is seen. No effusion or mass or foreign body is noted. Mild degenerative changes are evident. IMPRESSION: 1. Normal left knee three views Electronically signed by: Davin Montenegro MD 05/15/2020 4:53 PM [facility]
--- NOTE | 2020-05-15 16:56 | RAD ---
EXAM DESCRIPTION: Knee,Right Complete CLINICAL HISTORY: 70 years, Male, fall COMPARISON: December 21, 2019, March 03, 2017 TECHNIQUE: Three views of the right knee FINDINGS: The knee is normally aligned and mineralized. No fracture or deformity or destructive process is seen. No effusion or mass or foreign body is noted. Mild degenerative changes are evident. 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 No progression since 2017 noted. IMPRESSION: 1. No acute injury of the right knee. Electronically signed by: Davin Montenegro MD 05/15/2020 4:55 PM [facility]
--- NOTE | 2020-05-15 16:57 | RAD ---
EXAM DESCRIPTION: Chest,2 Views CLINICAL HISTORY: hypoxia, fall COMPARISON: August 14, 2018 TECHNIQUE: PA/lateral FINDINGS: The lungs are well expanded and clear. No infiltrates or effusions or masses are noted. The heart is normal in size and shape with no evidence of vascular congestion. The mitzi and mediastinum demonstrate normal contours. The bony spine and chest wall is normal for age in appearance. Epidural stimulator in place at the lower thoracic level, unchanged IMPRESSION: No acute cardiopulmonary disease with chronically elevated right hemidiaphragm Electronically signed by: Davin Montenegro MD 05/15/2020 4:56 PM CIRCUS TRAINER
--- NOTE | 2020-05-15 16:59 | RAD ---
EXAM DESCRIPTION: Shoulder,Right 2 or More Views CLINICAL HISTORY: fall COMPARISON: March 03, 2017 TECHNIQUE: Two views of the right shoulder. FINDINGS: There is good internal and external rotation. There is no fracture or bone lesion. Mild AC joint and glenohumeral degenerative arthropathy without fracture or deformity. Intact chest wall without pneumothorax. IMPRESSION: 1. Mildly degenerative right shoulder without fracture or dislocation Electronically signed by: Davin Montenegro MD 05/15/2020 4:57 PM SAMPLE CHECKER
[2020-05-15 19:11] VITALS: BP 156/83; TEMP 97.7; O2SAT 92
== END 2020-05-15 18:05 | disposition home or self-care (01) ==
LOC: ER 15:49
DX: S43.401A Unspecified sprain of right shoulder joint, initial encounter (principal); S80.211A Abrasion, right knee, initial encounter; S80.212A Abrasion, left knee, initial encounter; R29.6 Repeated falls; E11.9 Type 2 diabetes mellitus without complications; I10 Essential (primary) hypertension; J44.9 Chronic obstructive pulmonary disease, unspecified; I51.9 Heart disease, unspecified; Z79.84 Long term (current) use of oral hypoglycemic drugs; Z79.899 Other long term (current) drug therapy; W10.1XXA Fall (on)(from) sidewalk curb, initial encounter; Y92.9 Unspecified place or not applicable